=== PATIENT | male | born 1945 | race Caucasian/White ===

== ENCOUNTER → 2017-07-22 13:49 | Outpatient (CLI) | payer MEDICARE, SELFPAY ==
[2017-07-22 14:20] LABS: Add Manual Diff / Slide Review NO; Basophils Percent Auto 1.4 % (0-2); Hematocrit 36.6 % (41-53); Hemoglobin 12.4 g/dL (13.5-17.5); Lymphocytes Percent Auto 23.1 % (25-40); Mean Corpuscular HGB Conc 33.9 % (30-36); Mean Corpuscular Hemoglobin 32.8 PG (26-34); Mean Corpuscular Volume 96.5 fL (80-100); Monocytes Percent Auto 8.7 % (3-14); Neutrophils Absolute Auto 3800 /uL (3000-5900); Neutrophils Percent Auto 64.8 % (50-75); Platelet Count 246 X10^3/uL (150-400); Red Cell Distribution Width 13.6 % (11.6-14.8); White Blood Cell Count 5.9 X10^3/uL (4.5-11.0)
[2017-07-22 14:29] LABS: Alanine Aminotransferase 21 IU/L (21-72); Albumin 4.4 g/dL (3.5-5.0); Albumin Globulin Ratio 1.6 (1.0-2.8); Alkaline Phosphatase 56 U/L (38-126); Aspartate Aminotransferase 26 IU/L (17-59); BUN Creatinine Ratio 11.9 (6-22); Bilirubin Total 0.4 mg/dL (0.2-1.3); Calcium 9.6 mg/dL (8.4-10.2); Estimated Glomerular Filt Rate 42.6 mL/min (>60); Globulin 2.8 g/dL (1.7-4.1); Glucose 112 mg/dL (80-110); HEMOLYSIS < 15 (0-50); Potassium 4.4 mmol/L (3.4-5.1); Sodium 139 mmol/L (137-145); Total Protein 7.2 g/dL (6.3-8.2)
== END ==
PROVIDERS: Family Provider Physician Assistant; PCP Physician Assistant; Visit Provider Nurse Practitioner Gerontology
DX: C61 Malignant neoplasm of prostate (principal)
CPT/HCPCS: 36415; 80053; 84153; 85025

== ENCOUNTER → 2017-08-09 09:38 | Outpatient (CLI) | payer MEDICARE, SELFPAY ==
[2017-07-25 13:33] VITALS: TEMP 36.8
--- NOTE | 2017-08-09 09:39 | DI.NM.S_ITS ---
PROCEDURE: [place] BONE SCAN WHOLE BODY RADIOPHARMACEUTICAL: 20.3 mCi Tc-99m MDP IV. 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 Anterior and posterior views were acquired from vertex to feet. Additional left and right oblique views of the ribs were obtained. COMPARISON: [facility], [place], ABDOMEN/PELVIS WITHOUT CONTRAS, 10/25/2016, 10:27. [place], [place], BONE SCAN WHOLE BODY, 10/25/2016, 13:19. [place], BONE SCAN WHOLE BODY, 05/08/2016, 13:30. FINDINGS: Multiple foci of increased radiotracer uptake are noted in the right maxilla, the sternum, the ribs bilaterally, the lower thoracic spine the upper lumbar spine, the sacral spine, the bony pelvis and the proximal femurs bilaterally which are unchanged compared to 10/25/2016. No new areas of increased radiotracer uptake identified. No areas of osseous photopenia identified. Osteoarthritic uptake noted in the shoulders bilaterally and the right wrist. No abnormal soft tissue uptake. Activity in the kidneys is normal and symmetric. Dilated bilateral genitourinary collecting systems is stable and is compatible with chronic hydroureteronephrosis IMPRESSION: Extensive osseous metastatic disease not significantly changed compared to 10/25/16. No new osseous metastatic lesions are identified. Dictated by: Meenakshi Lacy MD, PhD on 08/09/2017 at 12:46 Approved by: Meenakshi Lacy MD, PhD on 08/09/2017 at 12:52
== END ==
PROVIDERS: Family Provider Physician Assistant; PCP Physician Assistant; Visit Provider Internal Medicine Hematology & Oncology
DX: C79.51 Secondary malignant neoplasm of bone (principal)
CPT/HCPCS: 78306; A9503

== ENCOUNTER → 2017-11-12 14:26 | Outpatient (CLI) | payer MEDICARE, SELFPAY ==
[2017-11-12 14:39] LABS: Add Manual Diff / Slide Review NO; Eosinophils Percent Auto 2.1 % (2-4); Hematocrit 34.6 % (41-53); Hemoglobin 12.1 g/dL (13.5-17.5); Lymphocytes Percent Auto 25.1 % (25-40); Mean Corpuscular HGB Conc 34.9 % (30-36); Mean Corpuscular Hemoglobin 33.4 PG (26-34); Mean Corpuscular Volume 95.7 fL (80-100); Monocytes Percent Auto 7.8 % (3-14); Neutrophils Absolute Auto 4100 /uL (3000-5900); Platelet Count 223 X10^3/uL (150-400); Red Blood Cell Count 3.62 X10^6/uL (4.5-5.9); Red Cell Distribution Width 13.6 % (11.6-14.8); White Blood Cell Count 6.4 X10^3/uL (4.5-11.0)
[2017-11-12 14:55] LABS: Alanine Aminotransferase 26 IU/L (21-72); Albumin 4.4 g/dL (3.5-5.0); Albumin Globulin Ratio 1.8 (1.0-2.8); Alkaline Phosphatase 57 U/L (38-126); Aspartate Aminotransferase 30 IU/L (17-59); BUN Creatinine Ratio 11.6 (6-22); Bilirubin Total 0.4 mg/dL (0.2-1.3); Blood Urea Nitrogen 22 mg/dL (9-20); Calcium 9.9 mg/dL (8.4-10.2); Carbon Dioxide 29 mmol/L (22-32); Chloride 104 mmol/L (98-107); Estimated Glomerular Filt Rate 34.9 mL/min (>60); Globulin 2.5 g/dL (1.7-4.1); Glucose 104 mg/dL (80-110); HEMOLYSIS < 15 (0-50); Potassium 4.5 mmol/L (3.4-5.1); Sodium 142 mmol/L (137-145); Total Protein 6.9 g/dL (6.3-8.2)
== END ==
PROVIDERS: Family Provider Physician Assistant; PCP Physician Assistant; Visit Provider Internal Medicine Hematology & Oncology
DX: C61 Malignant neoplasm of prostate (principal); C41.9 Malignant neoplasm of bone and articular cartilage, unspecified
CPT/HCPCS: 36415; 80053; 84153; 85025

== ENCOUNTER → 2018-02-04 13:50 | Outpatient (CLI) | payer MEDICARE, SELFPAY ==
[2018-02-04 14:08] LABS: Add Manual Diff / Slide Review NO; Eosinophils Percent Auto 7.3 % (2-4); Hemoglobin 12.8 g/dL (13.5-17.5); Lymphocytes Percent Auto 36.4 % (25-40); Mean Corpuscular HGB Conc 32.9 % (30-36); Mean Corpuscular Hemoglobin 32.2 PG (26-34); Mean Corpuscular Volume 97.9 fL (80-100); Monocytes Percent Auto 9.3 % (3-14); Neutrophils Absolute Auto 3400 /uL (3000-5900); Platelet Count 239 X10^3/uL (150-400); Red Blood Cell Count 3.98 X10^6/uL (4.5-5.9); Red Cell Distribution Width 13.7 % (11.6-14.8); White Blood Cell Count 7.4 X10^3/uL (4.5-11.0)
[2018-02-04 14:29] LABS: Alanine Aminotransferase 26 IU/L (21-72); Albumin 4.5 g/dL (3.5-5.0); Albumin Globulin Ratio 1.9 (1.0-2.8); Alkaline Phosphatase 58 U/L (38-126); Aspartate Aminotransferase 21 IU/L (17-59); Bilirubin Total 0.3 mg/dL (0.2-1.3); Blood Urea Nitrogen 18 mg/dL (9-20); Calcium 9.3 mg/dL (8.4-10.2); Carbon Dioxide 23 mmol/L (22-32); Chloride 105 mmol/L (98-107); Estimated Glomerular Filt Rate 45.9 mL/min (>60); Globulin 2.4 g/dL (1.7-4.1); Glucose 95 mg/dL (80-110); HEMOLYSIS < 15 (0-50); Iron 62 ug/dL (49-181); Potassium 4.6 mmol/L (3.4-5.1); Sodium 141 mmol/L (137-145); Total Protein 6.9 g/dL (6.3-8.2)
[2018-02-04 14:39] LABS: Percent Iron Saturation 17 % (20-50); Total Iron Binding Capacity 360 ug/dL (261-462); Transferrin 287 mg/dL (206-381)
== END ==
PROVIDERS: Family Provider Physician Assistant; PCP Physician Assistant; Visit Provider Nurse Practitioner Gerontology
DX: C61 Malignant neoplasm of prostate (principal); C79.51 Secondary malignant neoplasm of bone; E83.42 Hypomagnesemia
CPT/HCPCS: 36415; 80053; 83540; 83550; 83735; 84153; 85025

== ENCOUNTER → 2018-05-01 11:24 | Outpatient (CLI) | payer MEDICARE, SELFPAY ==
[2018-05-01 11:41] LABS: Add Manual Diff / Slide Review NO; Basophils Absolute Auto 100 /uL (0-100); Basophils Percent Auto 1.1 % (0-2); Eosinophils Absolute Auto 400 /uL (0-450); Eosinophils Percent Auto 5.5 % (2-4); Hematocrit 39.7 % (41-53); Hemoglobin 13.4 g/dL (13.5-17.5); Lymphocytes Absolute Auto 2700 /uL (1100-4500); Lymphocytes Percent Auto 35.3 % (25-40); Mean Corpuscular HGB Conc 33.9 % (30-36); Mean Corpuscular Hemoglobin 32.6 PG (26-34); Mean Corpuscular Volume 96.1 fL (80-100); Monocytes Absolute Auto 800 /uL (0-900); Monocytes Percent Auto 10.8 % (3-14); Neutrophils Absolute Auto 3700 /uL (1500-7000); Neutrophils Percent Auto 47.3 % (50-75); Platelet Count 264 X10^3/uL (150-400); Red Blood Cell Count 4.13 X10^6/uL (4.5-5.9); Red Cell Distribution Width 13.8 % (11.6-14.8); White Blood Cell Count 7.7 X10^3/uL (4.5-11.0)
[2018-05-01 11:55] LABS: Alanine Aminotransferase 22 IU/L (21-72); Albumin 4.7 g/dL (3.5-5.0); Albumin Globulin Ratio 1.6 (1.0-2.8); Alkaline Phosphatase 58 U/L (38-126); Aspartate Aminotransferase 24 IU/L (17-59); BUN Creatinine Ratio 12.1 (6-22); Bilirubin Total 0.3 mg/dL (0.2-1.3); Blood Urea Nitrogen 17 mg/dL (9-20); Calcium 9.5 mg/dL (8.4-10.2); Carbon Dioxide 23 mmol/L (22-32); Chloride 100 mmol/L (98-107); Estimated Glomerular Filt Rate 49.5 mL/min (>60); Glucose 109 mg/dL (80-110); HEMOLYSIS < 15 (0-50); Potassium 4.3 mmol/L (3.4-5.1); Sodium 135 mmol/L (137-145); Total Protein 7.7 g/dL (6.3-8.2)
--- NOTE | 2018-05-01 13:58 | PC.NURSE ---
labs stable, provider visit on 05/06
== END ==
PROVIDERS: Family Provider Physician Assistant; PCP Physician Assistant
DX: C61 Malignant neoplasm of prostate (principal); C79.51 Secondary malignant neoplasm of bone
CPT/HCPCS: 36415; 80053; 84153; 85025

== ENCOUNTER → 2018-06-02 09:38 | Outpatient (CLI) | payer MEDICARE, SELFPAY ==
--- NOTE | 2018-06-02 09:41 | DI.NM.S_ITS ---
PROCEDURE: [place] BONE SCAN WHOLE BODY RADIOPHARMACEUTICAL: 20.2 mCi Tc-99m MDP IV. INDICATIONS: Prostate Cancer TECHNIQUE: Delayed whole-body scintigrams were obtained approximately 3-4 hours after intravenous injection of radiotracer. Anterior and posterior views were acquired from vertex to feet. COMPARISON: [facility], [place], HAND 3V RIGHT, 09/20/2016, 12:39. [facility], [place], WRIST MINIMUM 3 VIEWS RIGHT, 09/20/2016, 12:39. [place], [place], BONE SCAN WHOLE BODY, 10/25/2016, 13:19. [place], BONE SCAN WHOLE BODY, 09/07/2015, 14:26. [place], BONE SCAN WHOLE BODY, 05/08/2016, 13:30. [facility], CT, CT CHEST ABD PEL W CON, 06/02/2018, 11:41. [place] BONE SCAN WHOLE BODY, 08/09/2017, 13:13. FINDINGS: There is increased uptake in the left maxillary area, unchanged. Foci of increased activity are present in the inferior sternum near the xiphoid, multiple ribs bilaterally, thoracic and lumbar spine, right iliac bone adjacent to sacroiliac joint, left proximal femur, correlating with extensive sclerotic bone lesions seen on CT, consistent with metastases. Compared with the last bone scan on 08/09/2017, there is no significant change. Increased uptake in right wrist is unchanged, correlating with severe degenerative/arthritic changes seen on the comparison radiograph. Increased uptake in the left foot is also likely degenerative. Bladder is mildly distended. IMPRESSION: 1. Stable metastatic disease on bone scan. Extensive sclerotic metastases are seen on correlating CT. Dictated by: Nell Vann M.D. on 06/02/2018 at 14:42 Approved by: Nell Vann M.D. on 06/02/2018 at 17:57
--- NOTE | 2018-06-02 10:13 | DI.CT.S_ITS ---
PROCEDURE: CT CHEST ABD PEL W CON INDICATIONS: acutely elevated PSA TECHNIQUE: After the administration of oral and intravenous contrast, 5 mm thick sections acquired from the lung apices to the symphysis. 5 mm coronal and sagittal reformats were performed, with additional 7 mm coronal MIP reformats through the lungs. For radiation dose reduction, the following was used: automated exposure control, adjustment of mA and/or kV according to patient size. COMPARISON: [place], [place] BONE SCAN WHOLE BODY, 06/02/2018, 12:52. [place] BONE SCAN WHOLE BODY, 08/09/2017, 13:13. [facility], [place], ABDOMEN/PELVIS WITHOUT CONTRAS, 10/25/2016, 10:27. [facility], CT, CHEST/ABD/PEL WITHOUT CONTRAST, 05/08/2016, 9:52. FINDINGS: Image quality: Excellent. CHEST: Lungs and pleura: Predominantly left-sided stable appearing pulmonary nodules are again noted, grossly unchanged since 04/18/16. No acute consolidation. Scattered subsegmental atelectasis and/or scarring. No pleural effusions or pneumothorax. Central and peripheral airways appear patent and normal in caliber. Mediastinum: Heart size is enlarged. Coronary artery calcifications are present. . No pericardial effusion. No mediastinal or hilar adenopathy by size criteria. Thoracic aorta and central pulmonary arteries are normal in size. Esophagus is normal in caliber. No hiatal hernia. Chest wall: No axillary or supraclavicular adenopathy by size criteria. Thyroid gland negative. Marked atrophy of the left subscapularis muscle as before ABDOMEN: Solid organs: Liver is normal in size and enhancement. Gallbladder grossly unremarkable. Biliary system is non dilated. Pancreas enhances normally. Spleen is normal in size and enhancement. No adrenal nodules. Left renal cortical atrophy. Unchanged simple appearing renal cysts. Bilateral hydroureter, grossly unchanged. Peritoneum and bowel: Bowel loops demonstrate normal wall thickness and caliber. No free fluid or air. Nodes and vessels: No retroperitoneal or mesenteric adenopathy by size criteria. Aorta and inferior vena cava are normal in size. Miscellaneous: No ventral hernias. PELVIS: Genitourinary: The bladder is distended and otherwise unremarkable. Miscellaneous: No inguinal hernias or adenopathy. Bones: Densely sclerotic widespread skeletal metastases as before. She wedging of the T12 and L1 vertebral bodies, unchanged. IMPRESSION: Overall, stable examination without evidence of active metastatic disease. Stable appearance of bilateral hydroureter. Previously seen circumferential bladder wall thickening appears improved on the current study. Stable pulmonary nodules presumably treated disease or sequela of prior granulomatous process. Cardiomegaly and coronary artery disease. Left renal atrophy as before. Widespread skeletal osseous metastases, as before. Dictated by: Jeanmarie Corrigan M.D. on 06/02/2018 at 15:03 Approved by: Jeanmarie Corrigan M.D. on 06/02/2018 at 15:14
[2018-06-02 10:57] LABS: Add Manual Diff / Slide Review NO; Basophils Absolute Auto 100 /uL (0-100); Basophils Percent Auto 1.4 % (0-2); Eosinophils Absolute Auto 300 /uL (0-450); Eosinophils Percent Auto 4.5 % (2-4); Hematocrit 38.7 % (41-53); Hemoglobin 12.9 g/dL (13.5-17.5); Lymphocytes Absolute Auto 1900 /uL (1100-4500); Lymphocytes Percent Auto 28.4 % (25-40); Mean Corpuscular HGB Conc 33.4 % (30-36); Mean Corpuscular Hemoglobin 32.7 PG (26-34); Mean Corpuscular Volume 97.9 fL (80-100); Monocytes Absolute Auto 700 /uL (0-900); Monocytes Percent Auto 10.7 % (3-14); Neutrophils Absolute Auto 3700 /uL (1500-7000); Platelet Count 244 X10^3/uL (150-400); Red Blood Cell Count 3.95 X10^6/uL (4.5-5.9); Red Cell Distribution Width 13.6 % (11.6-14.8); White Blood Cell Count 6.7 X10^3/uL (4.5-11.0)
[2018-06-02 11:11] LABS: Alanine Aminotransferase 24 IU/L (21-72); Albumin 4.7 g/dL (3.5-5.0); Albumin Globulin Ratio 1.7 (1.0-2.8); Alkaline Phosphatase 64 U/L (38-126); Aspartate Aminotransferase 22 IU/L (17-59); Bilirubin Total 0.3 mg/dL (0.2-1.3); Blood Urea Nitrogen 18 mg/dL (9-20); Calcium 9.3 mg/dL (8.4-10.2); Carbon Dioxide 24 mmol/L (22-32); Chloride 102 mmol/L (98-107); Estimated Glomerular Filt Rate 45.7 mL/min (>60); Globulin 2.7 g/dL (1.7-4.1); Glucose 113 mg/dL (80-110); HEMOLYSIS < 15 (0-50); Sodium 138 mmol/L (137-145); Total Protein 7.4 g/dL (6.3-8.2)
[2018-06-02 11:38] LABS: Prostate Specific Antigen 6.69 ng/mL (0.10-4.00)
[2018-06-02 11:41] LABS: Testosterone 11.3 ng/dL (71.8-623)
== END ==
PROVIDERS: Family Provider Physician Assistant; PCP Physician Assistant; Visit Provider Nurse Practitioner Gerontology
DX: C61 Malignant neoplasm of prostate (principal); C79.51 Secondary malignant neoplasm of bone; N13.4 Hydroureter; R91.8 Other nonspecific abnormal finding of lung field; I51.7 Cardiomegaly; I25.10 Atherosclerotic heart disease of native coronary artery without angina pectoris; N26.1 Atrophy of kidney (terminal)
CPT/HCPCS: 36415; 71260; 74177; 78306; 80053; 84153; 84403; 85025; A9503; Q9967

== ENCOUNTER → 2018-10-20 11:59 | Outpatient (CLI) | payer MEDICARE, SELFPAY ==
[2018-10-20 12:23] LABS: Add Manual Diff / Slide Review NO; Basophils Absolute Auto 100 /uL (0-100); Basophils Percent Auto 0.7 % (0-2); Eosinophils Absolute Auto 200 /uL (0-450); Eosinophils Percent Auto 2.9 % (2-4); Hematocrit 38.9 % (41-53); Hemoglobin 13.1 g/dL (13.5-17.5); Lymphocytes Absolute Auto 2100 /uL (1100-4500); Mean Corpuscular HGB Conc 33.6 % (30-36); Mean Corpuscular Hemoglobin 33.1 PG (26-34); Mean Corpuscular Volume 98.6 fL (80-100); Monocytes Absolute Auto 500 /uL (0-900); Monocytes Percent Auto 6.3 % (3-14); Neutrophils Absolute Auto 4600 /uL (1500-7000); Neutrophils Percent Auto 62.1 % (50-75); Platelet Count 221 X10^3/uL (150-400); Red Blood Cell Count 3.94 X10^6/uL (4.5-5.9); Red Cell Distribution Width 13.4 % (11.6-14.8); White Blood Cell Count 7.4 X10^3/uL (4.5-11.0)
[2018-10-20 12:35] LABS: Alanine Aminotransferase 20 IU/L (21-72); Albumin 4.1 g/dL (3.5-5.0); Albumin Globulin Ratio 1.6 (1.0-2.8); Alkaline Phosphatase 64 U/L (38-126); Aspartate Aminotransferase 23 IU/L (17-59); BUN Creatinine Ratio 18.8 (6-22); Bilirubin Total 0.4 mg/dL (0.2-1.3); Blood Urea Nitrogen 30 mg/dL (9-20); Calcium 9.5 mg/dL (8.4-10.2); Carbon Dioxide 29 mmol/L (22-32); Chloride 103 mmol/L (98-107); Estimated Glomerular Filt Rate 42.5 mL/min (>60); Globulin 2.5 g/dL (1.7-4.1); Glucose 112 mg/dL (80-110); HEMOLYSIS < 15 (0-50); Potassium 4.1 mmol/L (3.4-5.1); Sodium 141 mmol/L (137-145); Total Protein 6.6 g/dL (6.3-8.2)
[2018-10-20 13:05] LABS: Prostate Specific Antigen 7.04 ng/mL (0.10-4.00)
== END ==
PROVIDERS: Family Provider Physician Assistant; PCP Physician Assistant
DX: C61 Malignant neoplasm of prostate (principal); C79.51 Secondary malignant neoplasm of bone
CPT/HCPCS: 36415; 80053; 84153; 85025

== ENCOUNTER → 2018-12-15 09:46 | Outpatient (CLI) | payer MEDICARE, SELFPAY ==
[2018-12-15 11:12] LABS: Add Manual Diff / Slide Review NO; Basophils Absolute Auto 100 /uL (0-100); Basophils Percent Auto 0.7 % (0-2); Eosinophils Absolute Auto 200 /uL (0-450); Eosinophils Percent Auto 2.3 % (2-4); Hematocrit 37.6 % (41-53); Lymphocytes Absolute Auto 2400 /uL (1100-4500); Lymphocytes Percent Auto 28.2 % (25-40); Mean Corpuscular HGB Conc 34.7 % (30-36); Mean Corpuscular Hemoglobin 34.1 PG (26-34); Mean Corpuscular Volume 98.3 fL (80-100); Monocytes Absolute Auto 800 /uL (0-900); Monocytes Percent Auto 9.2 % (3-14); Neutrophils Absolute Auto 5000 /uL (1500-7000); Neutrophils Percent Auto 59.6 % (50-75); Platelet Count 214 X10^3/uL (150-400); Red Blood Cell Count 3.82 X10^6/uL (4.5-5.9); Red Cell Distribution Width 13.9 % (11.6-14.8); White Blood Cell Count 8.5 X10^3/uL (4.5-11.0)
[2018-12-15 11:24] LABS: Alanine Aminotransferase 25 IU/L (21-72); Albumin 4.4 g/dL (3.5-5.0); Albumin Globulin Ratio 1.8 (1.0-2.8); Alkaline Phosphatase 66 U/L (38-126); Aspartate Aminotransferase 33 IU/L (17-59); BUN Creatinine Ratio 12.8 (6-22); Bilirubin Total 0.6 mg/dL (0.2-1.3); Blood Urea Nitrogen 23 mg/dL (9-20); Calcium 11.6 mg/dL (8.4-10.2); Carbon Dioxide 28 mmol/L (22-32); Chloride 99 mmol/L (98-107); Estimated Glomerular Filt Rate 37.1 mL/min (>60); Globulin 2.4 g/dL (1.7-4.1); Glucose 107 mg/dL (80-110); HEMOLYSIS < 15 (0-50); Potassium 4.1 mmol/L (3.4-5.1); Sodium 140 mmol/L (137-145); Total Protein 6.8 g/dL (6.3-8.2)
[2018-12-15 11:54] LABS: Prostate Specific Antigen 9.83 ng/mL (0.10-4.00)
== END ==
PROVIDERS: PCP Physician Assistant
DX: C61 Malignant neoplasm of prostate (principal); C79.51 Secondary malignant neoplasm of bone
CPT/HCPCS: 36415; 80053; 84153; 85025

== ENCOUNTER → 2019-02-09 13:58 | Outpatient (CLI) | payer MEDICARE, SELFPAY ==
[2019-02-09 14:37] LABS: Add Manual Diff / Slide Review NO; Basophils Absolute Auto 100 /uL (0-100); Basophils Percent Auto 0.7 % (0-2); Eosinophils Absolute Auto 300 /uL (0-450); Eosinophils Percent Auto 2.7 % (2-4); Hematocrit 39.7 % (41-53); Hemoglobin 13.7 g/dL (13.5-17.5); Lymphocytes Absolute Auto 2700 /uL (1100-4500); Lymphocytes Percent Auto 28.9 % (25-40); Mean Corpuscular HGB Conc 34.5 % (30-36); Mean Corpuscular Hemoglobin 34.2 PG (26-34); Mean Corpuscular Volume 99.3 fL (80-100); Monocytes Absolute Auto 800 /uL (0-900); Monocytes Percent Auto 8.4 % (3-14); Neutrophils Absolute Auto 5600 /uL (1500-7000); Neutrophils Percent Auto 59.3 % (50-75); Platelet Count 203 X10^3/uL (150-400); Red Cell Distribution Width 13.4 % (11.6-14.8); White Blood Cell Count 9.5 X10^3/uL (4.5-11.0)
[2019-02-09 14:48] LABS: Alanine Aminotransferase 15 IU/L (<50); Albumin 4.5 g/dL (3.5-5.0); Albumin Globulin Ratio 1.7 (1.0-2.8); Alkaline Phosphatase 62 U/L (38-126); Aspartate Aminotransferase 23 IU/L (17-59); BUN Creatinine Ratio 15.9 (6-22); Bilirubin Total 0.5 mg/dL (0.2-1.3); Blood Urea Nitrogen 27 mg/dL (9-20); Calcium 9.8 mg/dL (8.4-10.2); Carbon Dioxide 30 mmol/L (22-32); Chloride 102 mmol/L (98-107); Estimated Glomerular Filt Rate 39.6 mL/min (>60); Globulin 2.6 g/dL (1.7-4.1); Glucose 96 mg/dL (80-110); HEMOLYSIS < 15 (0-50); Potassium 3.9 mmol/L (3.4-5.1); Sodium 140 mmol/L (137-145); Total Protein 7.1 g/dL (6.3-8.2)
== END ==
DX: C61 Malignant neoplasm of prostate (principal); C79.51 Secondary malignant neoplasm of bone
CPT/HCPCS: 36415; 80053; 84153; 85025

== ENCOUNTER → 2019-03-06 09:28 | Outpatient (CLI) | payer MEDICARE, SELFPAY ==
--- NOTE | 2019-03-06 09:30 | DI.CT.S_ITS ---
PROCEDURE: CT CHEST ABD PEL WO CON INDICATIONS: prostate cancer surveillance, increased pain TECHNIQUE: After the administration of oral contrast, 5 mm thick sections acquired from the lung apices to the symphysis pubis. 5 mm thick coronal and sagittal reformats acquired, with additional 7 mm coronal MIP reformats through the lungs. For radiation dose reduction, the following was used: automated exposure control, adjustment of mA and/or kV according to patient size. COMPARISON: [facility], CT, CHEST/ABD/PEL WITHOUT CONTRAST, 05/08/2016, 9:52. [facility], CT, CT CHEST ABD PEL W CON, 06/02/2018, 11:41. FINDINGS: Image quality: Excellent. CHEST: Lungs and pleura: Scattered subsegmental atelectasis and/or scarring. No focal consolidation. Multiple subpleural left upper lobe pulmonary nodules are unchanged since 2017. Diffuse central airway thickening. No pleural effusions or pneumothorax. Central and peripheral airways are patent are normal in caliber. Mediastinum: Heart size is borderline enlarged. Numerous coronary artery calcifications No pericardial effusion. No mediastinal adenopathy by CT size criteria. Thoracic aorta and central pulmonary arteries are normal in size. Esophagus is normal in caliber. Small hiatal hernia. Chest wall: No axillary or supraclavicular adenopathy by size criteria. Thyroid gland negative. Marked atrophy of the left subscapularis muscle. ABDOMEN: Solid organs: Liver is normal in size. Gallbladder unremarkable. Pancreas is normal in contours. Spleen is normal in size. No adrenal nodules. Severe left renal atrophy and cortical scarring. Presumed right renal cyst image 69/2. No definite urolithiasis. Bilateral ureterectasis, which is grossly unchanged to improved since the prior study. Previous pelviectasis has improved. Peritoneum and bowel: There is diffuse moderate stool. No evidence of bowel obstruction. The rectum is partially collapsed and therefore grossly unremarkable. No free fluid or air. Nodes and vessels: No retroperitoneal or mesenteric adenopathy by size criteria. Aorta and inferior vena cava are normal in size. Miscellaneous: No ventral hernias. PELVIS: Genitourinary: The bladder is grossly unremarkable Miscellaneous: No inguinal hernias or adenopathy. Bones: Redemonstration of innumerable osseous sclerotic metastases which appear grossly unchanged involving the ribs, spine, bony pelvis, sternum, bilateral scapula and bilateral femurs. No compression fracture is seen. Multilevel degenerative endplate sclerosis and spurring. Diffuse facet arthropathy. IMPRESSION: Innumerable widespread osseous metastases as before without definite interval change. Elsewhere, no pathologically enlarged lymphadenopathy or interval change to suggest progressive metastases Coronary artery disease Small hiatal hernia Additional chronic and incidental findings as above. Dictated by: Jeanmarie Corrigan M.D. on 03/06/2019 at 10:40 Approved by: Jeanmarie Corrigan M.D. on 03/06/2019 at 10:52
--- NOTE | 2019-03-06 09:30 | DI.NM.S_ITS ---
PROCEDURE: [place] BONE SCAN WHOLE BODY RADIOPHARMACEUTICAL: 21.3 mCi Tc-99m MDP IV. INDICATIONS: prostate cancer, increase pain TECHNIQUE: Delayed whole-body scintigrams were obtained approximately 3-4 hours after intravenous injection of radiotracer. Anterior and posterior views were acquired from vertex to feet. COMPARISON: [place], [place] BONE SCAN WHOLE BODY, 06/02/2018, 12:52. [place], [place] BONE SCAN WHOLE BODY, 08/09/2017, 13:13. FINDINGS: There is a focus of prominent midline dorsal isotope deposition centered on T5 vertebral body/posterior elements area of the upper thoracic spine. No other abnormality is seen. IMPRESSION: Suspect osseous metastatic disease and reported elevating PSA as cause of the T5 region posterior midline focus of new spine isotope deposition. MR scanning through that area may be warranted at this time. Dictated by: Maykel Urias M.D. on 03/06/2019 at 14:12 Approved by: Maykel Urias M.D. on 03/06/2019 at 14:14
== END ==
DX: C61 Malignant neoplasm of prostate (principal); C79.51 Secondary malignant neoplasm of bone; I25.10 Atherosclerotic heart disease of native coronary artery without angina pectoris; R52 Pain, unspecified; R91.8 Other nonspecific abnormal finding of lung field; K44.9 Diaphragmatic hernia without obstruction or gangrene
CPT/HCPCS: 36415; 71250; 74176; 78306; 80053; 84153; 85025; A9503

== ENCOUNTER → 2019-03-06 10:30 | Outpatient (CLI) | payer MEDICARE, SELFPAY ==
[2019-03-06 10:52] LABS: Add Manual Diff / Slide Review NO; Basophils Absolute Auto 100 /uL (0-100); Basophils Percent Auto 0.9 % (0-2); Eosinophils Absolute Auto 200 /uL (0-450); Eosinophils Percent Auto 2.7 % (2-4); Hematocrit 41.3 % (41-53); Hemoglobin 14.1 g/dL (13.5-17.5); Lymphocytes Absolute Auto 2200 /uL (1100-4500); Lymphocytes Percent Auto 26.3 % (25-40); Mean Corpuscular HGB Conc 34.1 % (30-36); Mean Corpuscular Hemoglobin 34.2 PG (26-34); Mean Corpuscular Volume 100.1 fL (80-100); Monocytes Absolute Auto 800 /uL (0-900); Monocytes Percent Auto 9.3 % (3-14); Neutrophils Absolute Auto 5100 /uL (1500-7000); Neutrophils Percent Auto 60.8 % (50-75); Platelet Count 224 X10^3/uL (150-400); Red Blood Cell Count 4.13 X10^6/uL (4.5-5.9); Red Cell Distribution Width 13.5 % (11.6-14.8); White Blood Cell Count 8.4 X10^3/uL (4.5-11.0)
[2019-03-06 11:05] LABS: Alanine Aminotransferase 18 IU/L (<50); Albumin 4.7 g/dL (3.5-5.0); Albumin Globulin Ratio 1.8 (1.0-2.8); Alkaline Phosphatase 68 U/L (38-126); Aspartate Aminotransferase 26 IU/L (17-59); BUN Creatinine Ratio 15.9 (6-22); Bilirubin Total 0.6 mg/dL (0.2-1.3); Blood Urea Nitrogen 27 mg/dL (9-20); Carbon Dioxide 31 mmol/L (22-32); Chloride 97 mmol/L (98-107); Estimated Glomerular Filt Rate 39.6 mL/min (>60); Globulin 2.6 g/dL (1.7-4.1); Glucose 109 mg/dL (80-110); HEMOLYSIS < 15 (0-50); Sodium 136 mmol/L (137-145); Total Protein 7.3 g/dL (6.3-8.2)
[2019-03-06 11:07] LABS: Potassium 5.7 mmol/L (3.4-5.1)
[2019-03-06 11:35] LABS: Prostate Specific Antigen 9.62 ng/mL (0.10-4.00)
== END ==
DX: C61 Malignant neoplasm of prostate (principal); C79.51 Secondary malignant neoplasm of bone
CPT/HCPCS: 36415; 80053; 84153; 85025

== ENCOUNTER 2019-06-20 15:18 | Inpatient (IN) | payer MEDICARE, SELFPAY ==
[2019-06-20] VITALS (13 sets, daily range): BP systolic 146–165; BP diastolic 62–96; PULSE 61–82; RESP 16–22; TEMP 36.5–37; O2SAT 79–96; BMI 22.9
--- NOTE | 2019-06-20 15:36 | ED.GENADULT ---
HPI - General Adult General Chief complaint: Weakness Stated complaint: Weak Time Seen by Provider: 06/20/19 15:18 Source: patient and EMS Mode of arrival: EMS Limitations: no limitations History of Present Illness HPI narrative: Patient is a 74-year-old male brought in by EMS this morning for diarrhea and weakness and nausea. Somewhat difficult to obtain in the exact HPI from the patient but does appear that last evening he was at his normal state health in this morning he felt well. He states he did not take his medications this morning. Unsure if he had diarrhea this morning however patient states that he did take a nap this afternoon and when he woke up at multiple episodes of diarrhea. States he could make it to the bathroom. He did fall while he was in the bathroom although he did not hit his head and sustained no injury. Was very weak could not stand up. EMS was called. When they arrived he was in his bedroom in covered in feces. Upon further questioning of his she states that he has had decreased oral intake over the past week and maybe his not been acting his normal for the past week. Patient does smoke. No history of COPD. No fevers no cough no sore throat. Is having some nausea upon arrival. Related Data Home Medications Medication Instructions Recorded Confirmed aspirin 325 mg PO PRN PRN #0 10/04/16 05/13/19 diphenhydramine HCl [Benadryl 25 mg DAILY 07/02/18 05/13/19 Allergy] morphine PO 06/20/19 Previous Rx's Medication Instructions Recorded enzalutamide [Xtandi] 160 mg PO DAILY #120 cap 04/08/19 hydrocodone-acetaminophen 1 tab PO DAILY #30 tab 06/10/19 morphine [MS Contin] 30 mg PO Q12H #60 tab 06/10/19 ondansetron HCl [Zofran] 8 mg PO Q6HR PRN #60 tab 06/15/19 Allergies Allergy/AdvReac Type Severity Reaction Status Date / Time No Known Drug Allergies Allergy Verified 06/20/19 15:18 Review of Systems Constitutional Constitutional: Reports chills, Reports fatigue, Reports fever(s), Denies headache(s) and Reports lethargy ENT Ears, Nose, Mouth, and Throat: Denies vertigo, Denies dizziness and Denies headache(s) Cardiovascular Cardiovascular: Denies chest pain and Denies dyspnea Respiratory Respiratory: Denies cough and Denies dyspnea Gastrointestinal Gastrointestinal: Denies abdominal pain, Denies dyspepsia, Reports diarrhea, Reports nausea and Denies vomiting Musculoskeletal Musculoskeletal: Denies myalgias and Denies arthralgias Integumentary/Breasts Skin/Breast: Denies rash Neurologic Neurologic: Denies confusion, Denies vertigo, Denies dizziness and Denies headache(s) Psychiatric Psychiatric: Denies confusion Endocrine Endocrine: Reports fatigue Hematologic/Lymphatic Hematologic/Lymphatic: Denies easy bleeding and Denies easy bruising Patient History Medical History Failure to thrive (Inactive) Hyponatremia (Inactive) Metastatic bone cancer (Inactive) Metastatic malignant neoplasm to prostate (Inactive) Social History Smoking Status: Current every day smoker Smoking Status: Current every day smoker tobacco type: cigarettes Substance Use Type: marijuana Exam Initial Vital Signs Initial Vital Signs: Vital Signs Temperature 97.7 F 06/20/19 15:19 Pulse Rate 82 06/20/19 15:19 Respiratory Rate 20 06/20/19 15:19 Blood Pressure 146/96 H 06/20/19 15:19 Pulse Oximetry 95 06/20/19 15:19 Const General: cooperative and comfortable Limitations: mental status not altered HENMT Head: normal to inspection and normocephalic Resp Effort & Inspection: normal respiratory effort, not labored, no retractions, not tachypneic and no use of accessory muscles Auscultation: clear to auscultation bilaterally Cardio Rate: regular rate Rhythm: regular rhythm GI Inspection: non-distended Palpation: soft Skin Lesions: no lesions Rashes: no rashes Neuro General: alert, awake and oriented x3 Speech: speech normal Sensory Exam: no sensory deficits noted Extrem General: normal to inspection and capillary refill normal Psych Appearance: grossly normal and well kempt Scores GCS Wendy coma scale eye opening: Spontaneous Wendy coma scale verbal response: Orientated Wendy coma scale motor response: Obey commands Wendy coma scale total score: 15 Course Orders Ordered: ED Orders 06/20/19 15:19 C-Reactive Protein Quant Stat Complete Blood Count AUTO DIFF Stat Comprehensive Metabolic Panel Stat D Dimer Stat Ferritin Stat Lactate Dehydrogenase Stat Lipase Stat Procalcitonin Stat Troponin I Stat 06/20/19 15:38 XR chest 1V Stat 06/20/19 15:47 EKG-12 Lead Stat 06/20/19 15:51 CT chest wo con Stat 06/20/19 17:08 Blood Culture Stat Urinalysis and Microscopic Stat 06/20/19 17:09 Arterial Blood Gas Stat Sodium Chloride (Normal Saline 0.9%) 1,000 mls @ 125 mls/hr IV CONT DESIRE Ceftriaxone Sodium/Dextrose (Rocephin) 1 gm in 50 mls @ 100 mls/hr IV NOW ONE Stop: 06/20/19 17:37 Discontinued Medications Azithromycin (Zithromax) 500 mg PO NOW ONE Stop: 06/20/19 17:08 Sodium Chloride (Normal Saline 0.9%) 1,000 mls @ 1,000 mls/hr IV BOLUS ONE Stop: 06/20/19 16:24 Last Admin: 06/20/19 15:50 Dose: 1,000 mls/hr Documented by: [email or web address] Ondansetron HCl (Zofran) 4 mg IV NOW ONE Stop: 06/20/19 15:26 Last Admin: 06/20/19 15:51 Dose: 4 mg Documented by: [email or web address] Vital Signs Vital signs: Vital Signs - 8 hr 06/20/19 15:19 06/20/19 15:29 06/20/19 15:30 Temperature 97.7 F Pulse Rate 82 81 79 Respiratory Rate 20 20 22 Blood Pressure 146/96 H Blood Pressure [Left Arm] 156/68 H Pulse Oximetry 95 92 79 L 06/20/19 15:45 06/20/19 16:30 06/20/19 16:53 Temperature Pulse Rate 71 61 65 Respiratory Rate 20 16 16 Blood Pressure Blood Pressure [Left Arm] 159/64 H 165/70 H Pulse Oximetry 94 94 94 Medical Decision Making Medical Records Medical records reviewed: Yes I reviewed the patient's medical records. Lab Data Lab results reviewed: Yes I reviewed the patient's lab results. Result diagrams: 06/20/19 15:19 06/20/19 15:19 Labs: Lab Results 06/20/19 06/20/19 06/20/19 Range/Units 15:19 15:19 15:19 WBC 12.3 H (4.5-11.0) X10^3/uL RBC 3.81 L (4.5-5.9) X10^6/uL Hgb 12.7 L (13.5-17.5) g/dL Hct 38.1 L (41-53) % MCV 100.1 H (80-100) fL MCH 33.4 (26-34) PG MCHC 33.3 (30-36) % RDW 12.6 (11.6-14.8) % Plt Count 287 (150-400) X10^3/uL Neut % (Auto) 55.0 (50-75) % Lymph % (Auto) 31.0 (25-40) % Worth % (Auto) 8.6 (3-14) % Eos % (Auto) 4.7 H (2-4) % Baso % (Auto) 0.7 (0-2) % Neut # (Auto) 6800 (6965-0203) /uL Lymph # (Auto) 3800 (8201-2150) /uL Worth # (Auto) 1100 H (0-900) /uL Eos # (Auto) 600 H (0-450) /uL Baso # (Auto) 100 (0-100) /uL D-Dimer 369 H (<230) ng/mL Sodium 133 L (137-145) mmol/L Potassium 3.6 (3.4-5.1) mmol/L Chloride 91 L (98-107) mmol/L Carbon Dioxide 26 (22-32) mmol/L BUN 28 H (9-20) mg/dL Creatinine 2.78 H (0.66-1.25) mg/dL Estimated GFR 22.4 L (>60) mL/min BUN/Creatinine Ratio 10.1 (6-22) Glucose 189 H (80-110) mg/dL Calcium 12.6 H (8.4-10.2) mg/dL Ferritin (18-464) ng/mL Total Bilirubin 0.6 (0.2-1.3) mg/dL AST 41 (17-59) IU/L ALT 16 (<50) IU/L Alkaline Phosphatase 80 (38-126) U/L Lactate Dehydrogenase (313-618) U/L Troponin I (0.01-0.034) ng/mL C-Reactive Protein (<1.0) mg/dL Total Protein 7.6 (6.3-8.2) g/dL Albumin 4.7 (3.5-5.0) g/dL Globulin 2.9 (1.7-4.1) g/dL Albumin/Globulin Ratio 1.6 (1.0-2.8) Lipase 98 (23-300) U/L Procalcitonin (<0.5) ng/mL 06/20/19 06/20/19 06/20/19 Range/Units 15:19 15:19 15:19 WBC (4.5-11.0) X10^3/uL RBC (4.5-5.9) X10^6/uL Hgb (13.5-17.5) g/dL Hct (41-53) % MCV (80-100) fL MCH (26-34) PG MCHC (30-36) % RDW (11.6-14.8) % Plt Count (150-400) X10^3/uL Neut % (Auto) (50-75) % Lymph % (Auto) (25-40) % Worth % (Auto) (3-14) % Eos % (Auto) (2-4) % Baso % (Auto) (0-2) % Neut # (Auto) (5649-1325) /uL Lymph # (Auto) (0160-7541) /uL Worth # (Auto) (0-900) /uL Eos # (Auto) (0-450) /uL Baso # (Auto) (0-100) /uL D-Dimer (<230) ng/mL Sodium (137-145) mmol/L Potassium (3.4-5.1) mmol/L Chloride (98-107) mmol/L Carbon Dioxide (22-32) mmol/L BUN (9-20) mg/dL Creatinine (0.66-1.25) mg/dL Estimated GFR (>60) mL/min BUN/Creatinine Ratio (6-22) Glucose (80-110) mg/dL Calcium (8.4-10.2) mg/dL Ferritin 23 (18-464) ng/mL Total Bilirubin (0.2-1.3) mg/dL AST (17-59) IU/L ALT (<50) IU/L Alkaline Phosphatase (38-126) U/L Lactate Dehydrogenase 411 (313-618) U/L Troponin I 0.038 H (0.01-0.034) ng/mL C-Reactive Protein < 0.5 (<1.0) mg/dL Total Protein (6.3-8.2) g/dL Albumin (3.5-5.0) g/dL Globulin (1.7-4.1) g/dL Albumin/Globulin Ratio (1.0-2.8) Lipase (23-300) U/L Procalcitonin 4.50 H (<0.5) ng/mL Imaging Data Chest x-ray: Radiologist's Impression: [address] [address] XRay Report Signed Patient: Eliazar Hernandez TMR#: [id number] : 5Acct:[id number] Age/Sex: 74 / MDate of Service: 06/20/19 Loc: ED Accession Number: [id number] Procedure: XR chest 1V Ordering Provider: Danny Jansen D.O. PROCEDURE: XR CHEST 1V INDICATIONS: Hypoxia TECHNIQUE: One view of the chest was acquired. COMPARISON: [facility], CT, CT CHEST ABD PEL WO CON, 03/06/2019, 10:21. [facility], NM, NM BONE SCAN WHOLE BODY, 03/06/2019, 12:57. [facility], CR, CHEST 1 VIEW, 09/29/2015, 15:01. FINDINGS: Surgical changes and devices: None. Lungs and pleura: Patchy areas of increased density are identified overlying the lungs, which could potentially represent areas of airspace disease or sclerotic lesions involving the ribs. Mediastinum: Mediastinal contours appear normal. Heart size is normal. There is aortic atherosclerosis. Bones and chest wall: No suspicious bony lesions. Overlying soft tissues appear unremarkable. Sclerotic foci are evident involving the right shoulder, multiple ribs, and nearly the entire imaged spine, but not well characterized. IMPRESSION: 1. Patchy areas of increased density within the lungs may represent multifocal pneumonia. However, these areas of increased density most likely represent sclerotic rib lesions. 2. Extensive sclerotic bony metastases. Dictated by: Refugio Gibbs M.D. on 06/20/2019 at 15:38 Approved by: Refugio Gibbs M.D. on 06/20/2019 at 15:41 CT scan - chest: Radiologist's Impression: [address] [place] [address] CT Scan Report Signed Patient: Eliazar Hernandez TMR#: [id number] : 5Acct:[id number] Age/Sex: 74 / MDate of Service: 06/20/19 Loc: ED Accession Number: [id number] Procedure: CT chest wo con Ordering Provider: Danny Jansen D.O. PROCEDURE: CT CHEST WO CON INDICATIONS: eval for bilateral infiltrates concern for COVID TECHNIQUE: Noncontrast 5 mm thick sections acquired from the pulmonary apices to the posterior costophrenic angles. 1 mm lung window, 5 mm thick coronal and sagittal and 7 mm axial MIP reformats were then acquired. For radiation dose reduction, the following was used: automated exposure control, adjustment of mA and/or kV according to patient size. COMPARISON: [facility], CR, XR CHEST 1V, 06/20/2019, 16:02. [facility], CT, CT CHEST ABD PEL WO CON, 03/06/2019, 10:21. [facility], CT, CT CHEST ABD PEL W CON, 06/02/2018, 11:41. FINDINGS: Image quality: Diagnostic. Lungs and pleura: The lungs are well aerated. There is no focal consolidation, effusion, or pneumothorax. There is a small nodule identified along the left upper lobe, which measures up to 7 mm in diameter and which is unchanged since 06/02/18. No definite new nodules are appreciated. There is no lung mass. Mediastinum: Heart size is normal. No pericardial effusion. No mediastinal adenopathy by size criteria. Thoracic aorta and central pulmonary arteries are normal in size. There is coronary and aortic atherosclerosis. Esophagus is normal in caliber. No hiatal hernia. Bones and chest wall: Extensive sclerotic lesions are identified diffusely throughout all of the chest, including the vertebra, ribs, sternum, scapula and, and right proximal humerus. No axillary or supraclavicular adenopathy by size criteria. Thyroid gland is not adequately evaluated on CT, but does not appear to be enlarged. Abdomen: Visualized upper abdominal solid organs and bowel loops appear normal in the absence of contrast. The stomach is moderately distended, which may be related to recent meal. IMPRESSION: 1. No cardiopulmonary process is evident. 2. Extensive sclerotic metastases without evidence of a pathologic fracture. 3. Unchanged dominant left upper lobe pulmonary nodule. No new nodules. 4. Coronary and aortic atherosclerosis. Dictated by: Refugio Gibbs M.D. on 06/20/2019 at 15:50 Approved by: Refugio Gibbs M.D. on 06/20/2019 at 15:54 ECG Data Attestation: I personally reviewed and interpreted this ECG as follows: Prior ECG tracings: not available for review Interpretation: Sinus rhythm Ventricular rate is 75 Normal axis Normal QRS Nonspecific ST T wave changes MDM Narrative Medical decision making narrative: 74-year-old male initially here for would appear to be GI symptoms and potentially dehydration and weakness. Not on anticoagulation. Initially while patient was on the pulse ox his saturations were in the 90s but then it did drop to the high 60s. Patient was not complaining of chest pain or shortness of breath at that time however there was a good tracing on the monitor. He was placed on 4 L of nasal cannula in after a couple deep breath through his nose oxygen saturations went to the mid upper 90s. I then took him off the oxygen by nasal cannula and his saturations again dropped to the 60s. He is placed back on oxygen a which increased his oxygen to the 90s once again. At then slowly titrated his oxygen down and when he was on 2 L his oxygen saturations dropped to the 80s and responded when he was placed back on greater than 3 L. He does have a slight leukocytosis. He does have an elevation in his creatinine which is potentially secondary to the decreased oral intake and the diarrhea today. Has an elevated procalcitonin and given his leukocytosis and his chest x-ray is concern for pneumonia. CT scan of his chest was done for further evaluation of potential COVID-19 infection with a primary GI etiology. A culture was sent for this. CT scan does not support a COVID diagnosis however he will remain in contact precautions until this test is back. Patient was given fluids. Antibiotics ordered after discussion with Dr. Azar with Internal Medicine. Cultures were obtained. Will admit secondary to the hypoxia and for fluid hydration and further weakness. Discussed this with the patient who expressed understanding and agreement. Discharge Plan Departure Patient Disposition: Admitted As Inpatient Clinical Impression: Hypoxia, Prostate cancer metastatic to bone, Acute kidney injury, Weakness Pneumonia Qualifiers: Pneumonia type: due to unspecified organism Laterality: unspecified laterality Lung location: unspecified part of lung Qualified Code(s): J18.9 - Pneumonia, unspecified organism Diarrhea Qualifiers: Diarrhea type: unspecified type Qualified Code(s): R19.7 - Diarrhea, unspecified Admit Date/Time: 06/20/19 17:12 Admit Provider: Giorgi Azar
[2019-06-20 15:40] LABS: Add Manual Diff / Slide Review NO; Basophils Absolute Auto 100 /uL (0-100); Basophils Percent Auto 0.7 % (0-2); Eosinophils Absolute Auto 600 /uL (0-450); Eosinophils Percent Auto 4.7 % (2-4); Hematocrit 38.1 % (41-53); Hemoglobin 12.7 g/dL (13.5-17.5); Lymphocytes Absolute Auto 3800 /uL (1100-4500); Mean Corpuscular HGB Conc 33.3 % (30-36); Mean Corpuscular Hemoglobin 33.4 PG (26-34); Mean Corpuscular Volume 100.1 fL (80-100); Monocytes Absolute Auto 1100 /uL (0-900); Monocytes Percent Auto 8.6 % (3-14); Neutrophils Absolute Auto 6800 /uL (1500-7000); Platelet Count 287 X10^3/uL (150-400); Red Blood Cell Count 3.81 X10^6/uL (4.5-5.9); Red Cell Distribution Width 12.6 % (11.6-14.8); White Blood Cell Count 12.3 X10^3/uL (4.5-11.0)
[2019-06-20 15:43] LABS: Alanine Aminotransferase 16 IU/L (<50); Albumin 4.7 g/dL (3.5-5.0); Albumin Globulin Ratio 1.6 (1.0-2.8); Alkaline Phosphatase 80 U/L (38-126); Aspartate Aminotransferase 41 IU/L (17-59); BUN Creatinine Ratio 10.1 (6-22); Bilirubin Total 0.6 mg/dL (0.2-1.3); Blood Urea Nitrogen 28 mg/dL (9-20); Calcium 12.6 mg/dL (8.4-10.2); Carbon Dioxide 26 mmol/L (22-32); Chloride 91 mmol/L (98-107); Estimated Glomerular Filt Rate 22.4 mL/min (>60); Globulin 2.9 g/dL (1.7-4.1); Glucose 189 mg/dL (80-110); HEMOLYSIS < 15 (0-50); Lipase 98 U/L (23-300); Potassium 3.6 mmol/L (3.4-5.1); Sodium 133 mmol/L (137-145); Total Protein 7.6 g/dL (6.3-8.2)
[2019-06-20] MEDS: SODIUM CHLORIDE 0.9% 1,000 ML 1000 ML IV (15:50)
[2019-06-20] MEDS: ONDANSETRON 4 MG/2 ML INJ IV ×2 (15:51→19:57)
--- NOTE | 2019-06-20 15:51 | DI.CT.S_ITS ---
PROCEDURE: CT CHEST WO CON INDICATIONS: eval for bilateral infiltrates concern for COVID TECHNIQUE: Noncontrast 5 mm thick sections acquired from the pulmonary apices to the posterior costophrenic angles. 1 mm lung window, 5 mm thick coronal and sagittal and 7 mm axial MIP reformats were then acquired. For radiation dose reduction, the following was used: automated exposure control, adjustment of mA and/or kV according to patient size. COMPARISON: [facility], CR, XR CHEST 1V, 06/20/2019, 16:02. [facility], CT, CT CHEST ABD PEL WO CON, 03/06/2019, 10:21. [facility], CT, CT CHEST ABD PEL W CON, 06/02/2018, 11:41. FINDINGS: Image quality: Diagnostic. Lungs and pleura: The lungs are well aerated. There is no focal consolidation, effusion, or pneumothorax. There is a small nodule identified along the left upper lobe, which measures up to 7 mm in diameter and which is unchanged since 06/02/18. No definite new nodules are appreciated. There is no lung mass. Mediastinum: Heart size is normal. No pericardial effusion. No mediastinal adenopathy by size criteria. Thoracic aorta and central pulmonary arteries are normal in size. There is coronary and aortic atherosclerosis. Esophagus is normal in caliber. No hiatal hernia. Bones and chest wall: Extensive sclerotic lesions are identified diffusely throughout all of the chest, including the vertebra, ribs, sternum, scapula and, and right proximal humerus. No axillary or supraclavicular adenopathy by size criteria. Thyroid gland is not adequately evaluated on CT, but does not appear to be enlarged. Abdomen: Visualized upper abdominal solid organs and bowel loops appear normal in the absence of contrast. The stomach is moderately distended, which may be related to recent meal. IMPRESSION: 1. No cardiopulmonary process is evident. 2. Extensive sclerotic metastases without evidence of a pathologic fracture. 3. Unchanged dominant left upper lobe pulmonary nodule. No new nodules. 4. Coronary and aortic atherosclerosis. Dictated by: Refugio Gibbs M.D. on 06/20/2019 at 15:50 Approved by: Refugio Gibbs M.D. on 06/20/2019 at 15:54
[2019-06-20 15:54] LABS: Lactate Dehydrogenase 411 U/L (313-618)
[2019-06-20 15:58] LABS: D Dimer 369 ng/mL (<230)
[2019-06-20 16:06] LABS: Troponin I 0.038 ng/mL (0.01-0.034)
[2019-06-20 16:09] LABS: C-Reactive Protein Quant < 0.5 mg/dL (<1.0)
[2019-06-20 16:30] LABS: Ferritin 23 ng/mL (18-464)
[2019-06-20] MEDS: CEFTRIAXONE 1 GM/50 ML FROZ.PIGGY IV (17:59)
[2019-06-20] MEDS: AZITHROMYCIN 250 MG TABLET 500 MG PO (18:00)
[2019-06-20] MEDS: SODIUM CHLORIDE 0.9% 1,000 ML 125 ML IV (18:09)
[2019-06-20 18:11] LABS: Fractionated Inspired Oxygen 0.36; HCO3 ABG 32 mmol/L (22-26); Oxygen Saturation ABG 85 % (95-100); PO2 ABG 53 mmHg (80-100); TCO2 ABG 33 mmol/L (21-31); pH ABG 7.37 (7.35-7.45)
--- NOTE | 2019-06-20 18:32 | P.HP_ITS ---
History of Present Illness History of Present Illness Date Patient Seen: 06/20/19 Time Patient Seen: 18:00 Chief complaint: Weak Narrative: Patient is a 74-year-old male with history of metastatic prostate cancer, under care of local Oncology, presented to emergency department with complaints of ?diarrhea ?and vomiting episode and weakness. Patient states he has had poor appetite and not taking much by mouth over the past 4 days. He takes Zofran regularly for nausea. He has also been constipated and taking MiraLax daily. This morning he had a bout of large watery bowel movement. He was feeling tired and went to bed. He woke up this afternoon with stool incontinence while still in bed and apparently barely made it to the bathroom. It sounds like he had a controlled fall in the bathroom and did not hit his head. He was very weak and could not stand up. When EMS arrived he was covered in feces. In the ER, patient started to have acute desaturations in his pulse ox with O2 sat in the 70s. He was put on 4 L O2 and C with improvement in sats to the mid 90s but on 2 L his sats have been in the low 80s. His ABG on 4 L (36%) NC showed pH 7.37, pCO2 55, PO2 53, sat 85%. However, patient denies cough, shortness of breath or fever. He lives with his who has not been sick. He had chest x-ray which showed patchy areas of increased density which likely represents sclerotic rib lesions from his metastatic cancer. His chest CT did not show any infiltrates. He has been intermittently in AFib on telemetry in the ED. His WBC is 12.3 with normal neutrophil and lymphocyte percentage, slightly elevated eosinophils, hemoglobin 12.7, sodium 133, potassium 3.6, BUN 28, creatinine 2.78. His recent baseline creatinine is 1.5-1.9 range. His serum calcium is quite elevated at 12.6. Procalcitonin is elevated at 4.50. Patient History Medical History Failure to thrive (Inactive) Hyponatremia (Inactive) Metastatic bone cancer (Inactive) Metastatic malignant neoplasm to prostate (Inactive) Family & Social History Safety & Behavioral: Feels Safe in Current Yes Environment Been Physically Hurt or No Threatened By a Person Tobacco & Substance use: Smoking Status Current every day smoker Substance Use Type marijuana Meds Home Medications and Allergies Home Medications Medication Instructions Recorded Confirmed Type aspirin 325 mg PO PRN PRN #0 10/04/16 05/13/19 History diphenhydramine HCl [Benadryl 25 mg DAILY 07/02/18 05/13/19 History Allergy] enzalutamide [Xtandi] 160 mg PO DAILY #120 cap 04/08/19 Rx hydrocodone-acetaminophen 1 tab PO DAILY #30 tab 06/10/19 Rx morphine [MS Contin] 30 mg PO Q12H #60 tab 06/10/19 Rx ondansetron HCl [Zofran] 8 mg PO Q6HR PRN #60 tab 06/15/19 Rx morphine PO 06/20/19 History Allergies Allergy/AdvReac Type Severity Reaction Status Date / Time No Known Drug Allergies Allergy Verified 06/20/19 15:18 Review of Systems Review of Systems ROS: Yes All systems reviewed with the patient and are negative except as otherwise documented Exam Vital Signs (past 8 hours): - 06/20/19 15:19 06/20/19 15:29 06/20/19 15:30 Temperature 97.7 F Pulse Rate 82 81 79 Respiratory Rate 20 20 22 Blood Pressure 146/96 H Blood Pressure [Left Arm] 156/68 H Pulse Oximetry 95 92 79 L 06/20/19 15:45 06/20/19 16:30 06/20/19 16:53 Temperature Pulse Rate 71 61 65 Respiratory Rate 20 16 16 Blood Pressure Blood Pressure [Left Arm] 159/64 H 165/70 H Pulse Oximetry 94 94 94 06/20/19 18:13 06/20/19 18:29 Temperature Pulse Rate 63 63 Respiratory Rate 20 20 Blood Pressure 150/62 H Blood Pressure [Left Arm] 150/62 H Pulse Oximetry 93 Oxygen Delivery Method Nasal Cannula Oxygen Flow Rate 4 Narrative Exam Narrative: General: Elderly male who is alert but appears in a weakened state HEENT: Pupils equal Neck: No lymphadenopathy Lungs: Clear to auscultation Heart: Regular rhythm, no murmur Abdomen: Nondistended, soft and nontender Extremities: Warm, no edema, no rash Neurological: Alert, oriented to person and place, nonfocal Objective Labs Result Diagrams: 06/20/19 15:19 06/20/19 15:19 Labs: Laboratory Results - last 24 hr 06/20/19 06/20/19 06/20/19 15:19 15:19 15:19 WBC 12.3 H RBC 3.81 L Hgb 12.7 L Hct 38.1 L MCV 100.1 H MCH 33.4 MCHC 33.3 RDW 12.6 Plt Count 287 Neut % (Auto) 55.0 Lymph % (Auto) 31.0 [place] % (Auto) 8.6 Eos % (Auto) 4.7 H Baso % (Auto) 0.7 Neut # (Auto) 6800 Lymph # (Auto) 3800 [place] # (Auto) 1100 H Eos # (Auto) 600 H Baso # (Auto) 100 D-Dimer 369 H ABG pH ABG pCO2 ABG pO2 ABG HCO3 ABG Total CO2 ABG O2 Saturation ABG Base Excess FiO2 Sodium 133 L Potassium 3.6 Chloride 91 L Carbon Dioxide 26 BUN 28 H Creatinine 2.78 H Estimated GFR 22.4 L BUN/Creatinine Ratio 10.1 Glucose 189 H Calcium 12.6 H Ferritin Total Bilirubin 0.6 AST 41 ALT 16 Alkaline Phosphatase 80 Lactate Dehydrogenase Troponin I C-Reactive Protein Total Protein 7.6 Albumin 4.7 Globulin 2.9 Albumin/Globulin Ratio 1.6 Lipase 98 Procalcitonin 06/20/19 06/20/19 06/20/19 15:19 15:19 15:19 WBC RBC Hgb Hct MCV MCH MCHC RDW Plt Count Neut % (Auto) Lymph % (Auto) [place] % (Auto) Eos % (Auto) Baso % (Auto) Neut # (Auto) Lymph # (Auto) [place] # (Auto) Eos # (Auto) Baso # (Auto) D-Dimer ABG pH ABG pCO2 ABG pO2 ABG HCO3 ABG Total CO2 ABG O2 Saturation ABG Base Excess FiO2 Sodium Potassium Chloride Carbon Dioxide BUN Creatinine Estimated GFR BUN/Creatinine Ratio Glucose Calcium Ferritin 23 Total Bilirubin AST ALT Alkaline Phosphatase Lactate Dehydrogenase 411 Troponin I 0.038 H C-Reactive Protein < 0.5 Total Protein Albumin Globulin Albumin/Globulin Ratio Lipase Procalcitonin 4.50 H 06/20/19 17:59 WBC RBC Hgb Hct MCV MCH MCHC RDW Plt Count Neut % (Auto) Lymph % (Auto) [place] % (Auto) Eos % (Auto) Baso % (Auto) Neut # (Auto) Lymph # (Auto) [place] # (Auto) Eos # (Auto) Baso # (Auto) D-Dimer ABG pH 7.37 ABG pCO2 55.0 H ABG pO2 53 L ABG HCO3 32 H ABG Total CO2 33 H ABG O2 Saturation 85 L ABG Base Excess 6.0 H FiO2 0.36 Sodium Potassium Chloride Carbon Dioxide BUN Creatinine Estimated GFR BUN/Creatinine Ratio Glucose Calcium Ferritin Total Bilirubin AST ALT Alkaline Phosphatase Lactate Dehydrogenase Troponin I C-Reactive Protein Total Protein Albumin Globulin Albumin/Globulin Ratio Lipase Procalcitonin Assessment & Plan Assessment & Plan narrative: Patient is a 74-year-old male with metastatic prostate cancer now presenting with a couple episodes of watery stool and incontinence and episode of vomiting but noted to be severely hypoxic in spite of absence of respiratory complaints. 1. Acute hypoxic respiratory failure, present on admission, active -as noted O2 sat in the 70s on room air, ABG pH 7.369, pCO2 55, PO2 53; PaO2/FIO2 of 147 -CT without evidence of lung infiltrate -patient without overt respiratory symptoms of cough or dyspnea, however his presentation with severe unexplained hypoxia is very concerning for COVID-19 -patient is at high risk of clinical deterioration in respiratory status where he would need to be intubated and placed on mechanical ventilator, however he has clearly stated wishes that he does not want to be placed on life support or have CPR -Support oxygenation with nasal cannula, since patient does not wish to be intubated we can exceed 6 L high-flow nasal cannula if necessary -mildly elevated WBC and elevated procalcitonin of 4.50 also raises possibility of bacterial infection including developing pneumonia not seen on CT -obtain blood cultures and urine culture -rule out COVID-19 -Rocephin 1 g IV q.day and Zithromax 500 mg IV q.day to treat for possible developing bacterial pneumonia -consider repeat chest x-ray or noncontrast chest CT in a.m. -D-dimer is minimally elevated and patient without tachycardia which probably makes large PE unlikely to explain his presentation -consider TTE once patient COVID testing result is back 2. Acute kidney injury, present on admission, active -CKD stage 3 with creatinine in 1.5-1.9 range -admit BUN 28, creatinine 2.78, EGFR 22.4 likely explained by patient's lack of p.o. intake in the past several days -received 1 L NS in ED -continue NS 42 cc/hour x1 additional liter -repeat renal function in AM 3. Acute hypercalcemia, present on admission, active -probably due to volume depletion and may be also partly from bone metastases secondary to his prostate CA -addressed with IV hydration -recheck labs in a.m. 4. Paroxysmal AFib with controlled rate, present on admission, active -in ED on tele noted to be intermittently in AFib without change in BP or O2 sat, likely precipitated by hypoxia -monitor on telemetry 5. Metastatic prostate cancer -patient establish with local oncology -continue Xtandi -continue patient's morphine MS Contin 30 mg b.i.d. for pain due to bone Mets DVT prophylaxis: Lovenox renal dose Code status: DNR per bedside discussion with patient at time of admission
[2019-06-20] MEDS: MORPHINE ER 30 MG TABLET PO (19:52)
--- NOTE | 2019-06-20 22:10 | PC.ADMIT ---
[address] Admission Note: The patient,Eliazar Hernandez,74 y/o, was given written information regarding hospital policies, unit procedures and contact persons. Pt arrived from ED via stretcher at approx 1940. A/O. RA sats 89-90%. 2.5 L NC sats increased to 95%. Slider board used to trans to bed. Denies pain. Oriented to room and call system. Special droplet isolation initiated for Covid-19 PUI. Telemetry connected. Urinal placed at bedside. Notified provider of pt request for Nicotine patch. Patient's smoking status: Current every day smoker. Vital Signs - 8 hr 06/20/19 15:19 06/20/19 15:29 06/20/19 15:30 Temperature 97.7 F Pulse Rate 82 81 79 Respiratory Rate 20 20 22 Blood Pressure 146/96 H Blood Pressure [Left Arm] 156/68 H Pulse Oximetry 95 92 79 L 06/20/19 15:45 06/20/19 16:30 06/20/19 16:53 Temperature Pulse Rate 71 61 65 Respiratory Rate 20 16 16 Blood Pressure Blood Pressure [Left Arm] 159/64 H 165/70 H Pulse Oximetry 94 94 94 06/20/19 18:13 06/20/19 18:29 06/20/19 19:44 Temperature 98.6 F Pulse Rate 63 63 68 Respiratory Rate 20 20 16 Blood Pressure 150/62 H 162/63 H Blood Pressure [Left Arm] 150/62 H Pulse Oximetry 93 96 06/20/19 21:15 Temperature Pulse Rate Respiratory Rate Blood Pressure Blood Pressure [Left Arm] Pulse Oximetry 95
[2019-06-20] MEDS: NICOTINE 14 PATCH 14 MG TOP (22:41)
[2019-06-21] VITALS (11 sets, daily range): BP systolic 125–151; BP diastolic 65–97; PULSE 55–77; RESP 15–19; TEMP 36.3–36.8; O2SAT 92–100
--- NOTE | 2019-06-21 02:14 | PC.NURSE ---
Addendum entered by Lisa Vargas R.N. 06/21/19 06:57: Incontinent of large amount loose BM. Continues to intermittently set off oximeter alarm and noted to be down into low 80's but rebounds back to low 90's within 1 minute. States he is having left leg pain this morning and rates severity as 7/10; medicated with scheduled Morphine ER. Original Note: At start of shift patient on 3L but sat noted to be as low as 80% so increased to 4L/min. Continued to note intermittent desats into low 80's with rebound back to 90's within 1 minute; RT here to assess and placed patient on oxygen at 6L/min and sat while asleep noted to be 90%. Denies SOB and breath sounds are CTA. Is alert and oriented. YSLETA DEL SUR. HR irregular; telemetry reading at 0000 was SR w/PAC's. Denies nausea. BT present and abdomen is soft. Denies dysuria, frequency or urgency and is using urinal in bed. Able to turn himself but reportedly needing assistance/device when out of bed; gait not assessed at this time as not out of bed. Has limited ROM in left shoulder and complains of 6/10 pain (when asked) but declines pain medication/intervention. Abrasions noted on bilateral LE. Calf SCD's applied as per MD order. Is on special droplet/contact precautions due to aerosolization from oxygen being at 6L/min. Also on chemo precautions. Fall risk score is high and bed alarm is activated.
[2019-06-21 06:19] LABS: BUN Creatinine Ratio 9.9 (6-22); Blood Urea Nitrogen 23 mg/dL (9-20); Calcium 10.8 mg/dL (8.4-10.2); Carbon Dioxide 34 mmol/L (22-32); Chloride 98 mmol/L (98-107); Estimated Glomerular Filt Rate 27.6 mL/min (>60); Glucose 93 mg/dL (80-110); HEMOLYSIS < 15 (0-50); Potassium 3.9 mmol/L (3.4-5.1); Sodium 133 mmol/L (137-145)
[2019-06-21 06:26] LABS: Add Manual Diff / Slide Review NO; Basophils Absolute Auto 100 /uL (0-100); Eosinophils Absolute Auto 400 /uL (0-450); Eosinophils Percent Auto 4.9 % (2-4); Hematocrit 34.3 % (41-53); Hemoglobin 11.5 g/dL (13.5-17.5); Lymphocytes Absolute Auto 1500 /uL (1100-4500); Mean Corpuscular HGB Conc 33.7 % (30-36); Mean Corpuscular Hemoglobin 33.8 PG (26-34); Mean Corpuscular Volume 100.5 fL (80-100); Monocytes Absolute Auto 900 /uL (0-900); Monocytes Percent Auto 12.5 % (3-14); Neutrophils Absolute Auto 4700 /uL (1500-7000); Neutrophils Percent Auto 61.6 % (50-75); Platelet Count 193 X10^3/uL (150-400); Red Blood Cell Count 3.41 X10^6/uL (4.5-5.9); Red Cell Distribution Width 12.8 % (11.6-14.8); White Blood Cell Count 7.6 X10^3/uL (4.5-11.0)
[2019-06-21 06:45] LABS: Procalcitonin 2.57 ng/mL (<0.5)
[2019-06-21] MEDS: MORPHINE ER 30 MG TABLET PO ×2 (06:50→18:52)
--- NOTE | 2019-06-21 07:39 | DI.CT.S_ITS ---
PROCEDURE: CT CHEST WO CON INDICATIONS: resp failure TECHNIQUE: Noncontrast 5 mm thick sections acquired from the pulmonary apices to the posterior costophrenic angles. 1 mm lung window, 5 mm thick coronal and sagittal and 7 mm axial MIP reformats were then acquired. For radiation dose reduction, the following was used: automated exposure control, adjustment of mA and/or kV according to patient size. COMPARISON: [facility], CR, XR CHEST 1V, 06/20/2019, 16:02. [facility], CT, CT CHEST WO CON, 06/20/2019, 16:01. [facility], CT, CT CHEST ABD PEL WO CON, 03/06/2019, 10:21. [facility], CT, CHEST/ABD/PEL WITHOUT CONTRAST, 05/08/2016, 9:52. FINDINGS: Image quality: Diagnostic. Lungs and pleura: There has been interval development of mild consolidation within the bilateral posterior costophrenic angles. No effusion or definite pneumothorax is appreciated. There may be emphysematous changes of the lungs. No lung masses identified. The dominant left upper lobe pulmonary nodule is unchanged. There are no nodules. Mediastinum: Heart size is normal. No pericardial effusion. No mediastinal adenopathy by size criteria. Thoracic aorta and central pulmonary arteries are normal in size. Coronary and aortic atherosclerosis is present. Esophagus is normal in caliber. No hiatal hernia. Bones and chest wall: No suspicious bony lesions. No vertebral body compression fractures. No axillary or supraclavicular adenopathy by size criteria. Thyroid gland is not enlarged for adequately characterized. Abdomen: Visualized upper abdominal solid organs and bowel loops appear normal in the absence of contrast. IMPRESSION: 1. Developing mild posterior costophrenic angle consolidation most likely represents atelectasis. However, please correlate clinically to exclude pneumonia. 2. Probable pulmonary emphysema. Clinical correlation is recommended. Dictated by: Refugio Gibbs M.D. on 06/21/2019 at 9:40 Approved by: Refugio Gibbs M.D. on 06/21/2019 at 9:44
--- NOTE | 2019-06-21 11:39 | PC.NURSE ---
Addendum entered by Nate Machado R.N. 06/21/19 14:20: Radiology in for hip and abdominal x-rays. will continue to wean O2 per discussion with Dr. Azar. Original Note: Pt alert and oriented asking appropriate questions. Pt to CT scan per orders. Conting awaiting Covid result. Dr. Azar in to speak with Pt. RN spoke with . to call back @ 13:30 Pt maintaining sats @94-95 on 4 ltrs. Continues on Droplet/Airborne isolation.
--- NOTE | 2019-06-21 11:47 | DI.US.S_ITS ---
PROCEDURE: US PERIPH VENOUS LOW EXTREM BI INDICATIONS: EVALUATE FOR DVT TECHNIQUE: Real-time imaging, as well as color and pulse Doppler interrogation, were performed of the deep veins of both legs from the inguinal ligament to the popliteal fossa. COMPARISON: None. FINDINGS: Right: The common femoral, femoral and popliteal veins are normally compressible, and free of intraluminal thrombus. Color and pulse Doppler demonstrate normal phasic intravascular flow. There is normal augmentation response to distal compression maneuver. Left: The common femoral, femoral and popliteal veins are normally compressible, and free of intraluminal thrombus. Color and pulse Doppler demonstrate normal phasic intravascular flow. There is normal augmentation response to distal compression maneuver. IMPRESSION: No evidence of deep vein thrombosis of the bilateral lower extremities. Dictated by: Refugio Gibbs M.D. on 06/21/2019 at 12:57 Approved by: Refugio Gibbs M.D. on 06/21/2019 at 12:57
--- NOTE | 2019-06-21 12:03 | CM.DANOTE ---
Discharge Planning/Care Management DCP: assessment: Case received, EMR reviewed. Discussed case in Team Rounds. COVID-19 rule out protocol is in place: Dr. Azar confirmed pt wishes DNAR and no ventilator support intervention. Chemo Precautions. Pt is a 74 year old male who admitted last night to care of hospitalist team. Payer: Medicare and [employer]. Admission status: INPT as of 06/19. Pt is established with oncology clinic and carries dx of metastatic prostate cancer. Spoke by phone with pt's Jenifer. Introduced self and role. Jenifer states that in spite of his ongoing cancer treatments he, up until a week ago, was his usual very active and independent self. He still is out doing maintenance jobs for others, painting, lawn work etc. RE Advanced Directives: Jenifer states that neither she nor her have these in place but she is very aware and supportive of pt's decisions for DNAR and No Ventilator support. Jenifer does say she is worried that it pt is sent home too early she will not be able to care for him. She has health conditions which would make this difficult. Pt does have a sister, Meghna Garza, who recently retired for after many years in the HouseKeeping dept who lives nearby and who Jenifer reports has been very supportive. P: Assured her that the DCP team would be following as POC unfolds to assist with d/c issues and options and these become clearer. DCplanner desk contact number is provided. CM Discharge Assessment Start: 08/04 12:00 Freq: Status: Active Protocol: Document 06/21/19 12:01 ITV (Rec: 06/21/19 12:02 ITV [id number]) Discharge Planning Assessment Advance Directives? No History Provided By Medical Record Prior Living Arrangements House Household Members spouse Is patient alert and oriented? Yes Review Status In Process
--- NOTE | 2019-06-21 12:21 | PM.PN.1 ---
Subjective Subjective Date Patient Seen: 06/21/19 Interval history: Patient is a 74-year-old male with history of metastatic prostate cancer, under care of local Oncology, presented with acute diarrhea and vomiting and noted to be hypoxic with O2 sat in the 70s on room air. His noncontrast chest CT did not show any acute abnormality. Overnight he has been on 6 L high-flow nasal cannula. He states he is feeling better overall and currently O2 sat 100%. He still has not developed shortness of breath, cough or fever and he denies pleuritic chest pain. He does complain of pain in his left leg which he had not mentioned at time of H&P. Exam Vital Signs (past 8 hours): - 06/21/19 05:45 06/21/19 07:46 06/21/19 08:38 Temperature 97.9 F 97.3 F L Pulse Rate 55 L 56 L Respiratory Rate 18 19 Blood Pressure 149/73 H 148/78 H Pulse Oximetry 97 98 100 Oxygen Delivery Method High Flow Nasal Cannula Oxygen Flow Rate 6 Narrative Exam Narrative: General: Alert and pleasant male who appears comfortable Lungs: Clear to auscultation Heart: Regular rhythm with occasional ectopy Abdomen: Soft and nontender Extremities: No edema, no palpable cord Neurological: Sensorium intact nonfocal Objective Labs Result Diagrams: 06/21/19 05:44 06/21/19 05:44 Labs: Laboratory Results - last 24 hr 06/20/19 06/20/19 06/20/19 15:19 15:19 15:19 WBC 12.3 H RBC 3.81 L Hgb 12.7 L Hct 38.1 L MCV 100.1 H MCH 33.4 MCHC 33.3 RDW 12.6 Plt Count 287 Neut % (Auto) 55.0 Lymph % (Auto) 31.0 [place] % (Auto) 8.6 Eos % (Auto) 4.7 H Baso % (Auto) 0.7 Neut # (Auto) 6800 Lymph # (Auto) 3800 [place] # (Auto) 1100 H Eos # (Auto) 600 H Baso # (Auto) 100 D-Dimer 369 H ABG pH ABG pCO2 ABG pO2 ABG HCO3 ABG Total CO2 ABG O2 Saturation ABG Base Excess FiO2 Sodium 133 L Potassium 3.6 Chloride 91 L Carbon Dioxide 26 BUN 28 H Creatinine 2.78 H Estimated GFR 22.4 L BUN/Creatinine Ratio 10.1 Glucose 189 H Calcium 12.6 H Ferritin Total Bilirubin 0.6 AST 41 ALT 16 Alkaline Phosphatase 80 Lactate Dehydrogenase Troponin I C-Reactive Protein Total Protein 7.6 Albumin 4.7 Globulin 2.9 Albumin/Globulin Ratio 1.6 Lipase 98 Procalcitonin 06/20/19 06/20/19 06/20/19 15:19 15:19 15:19 WBC RBC Hgb Hct MCV MCH MCHC RDW Plt Count Neut % (Auto) Lymph % (Auto) [place] % (Auto) Eos % (Auto) Baso % (Auto) Neut # (Auto) Lymph # (Auto) [place] # (Auto) Eos # (Auto) Baso # (Auto) D-Dimer ABG pH ABG pCO2 ABG pO2 ABG HCO3 ABG Total CO2 ABG O2 Saturation ABG Base Excess FiO2 Sodium Potassium Chloride Carbon Dioxide BUN Creatinine Estimated GFR BUN/Creatinine Ratio Glucose Calcium Ferritin 23 Total Bilirubin AST ALT Alkaline Phosphatase Lactate Dehydrogenase 411 Troponin I 0.038 H C-Reactive Protein < 0.5 Total Protein Albumin Globulin Albumin/Globulin Ratio Lipase Procalcitonin 4.50 H 06/20/19 06/21/19 06/21/19 17:59 05:44 05:44 WBC 7.6 RBC 3.41 L Hgb 11.5 L Hct 34.3 L MCV 100.5 H MCH 33.8 MCHC 33.7 RDW 12.8 Plt Count 193 Neut % (Auto) 61.6 Lymph % (Auto) 20.0 L [place] % (Auto) 12.5 Eos % (Auto) 4.9 H Baso % (Auto) 1.0 Neut # (Auto) 4700 Lymph # (Auto) 1500 [place] # (Auto) 900 Eos # (Auto) 400 Baso # (Auto) 100 D-Dimer ABG pH 7.37 ABG pCO2 55.0 H ABG pO2 53 L ABG HCO3 32 H ABG Total CO2 33 H ABG O2 Saturation 85 L ABG Base Excess 6.0 H FiO2 0.36 Sodium Potassium Chloride Carbon Dioxide BUN Creatinine Estimated GFR BUN/Creatinine Ratio Glucose Calcium Ferritin Total Bilirubin AST ALT Alkaline Phosphatase Lactate Dehydrogenase Troponin I C-Reactive Protein Total Protein Albumin Globulin Albumin/Globulin Ratio Lipase Procalcitonin 2.57 H 06/21/19 05:44 WBC RBC Hgb Hct MCV MCH MCHC RDW Plt Count Neut % (Auto) Lymph % (Auto) [place] % (Auto) Eos % (Auto) Baso % (Auto) Neut # (Auto) Lymph # (Auto) [place] # (Auto) Eos # (Auto) Baso # (Auto) D-Dimer ABG pH ABG pCO2 ABG pO2 ABG HCO3 ABG Total CO2 ABG O2 Saturation ABG Base Excess FiO2 Sodium 133 L Potassium 3.9 Chloride 98 Carbon Dioxide 34 H BUN 23 H Creatinine 2.32 H Estimated GFR 27.6 L BUN/Creatinine Ratio 9.9 Glucose 93 Calcium 10.8 H Ferritin Total Bilirubin AST ALT Alkaline Phosphatase Lactate Dehydrogenase Troponin I C-Reactive Protein Total Protein Albumin Globulin Albumin/Globulin Ratio Lipase Procalcitonin Assessment & Plan Assessment & Plan narrative: Patient is a 74-year-old male with history of metastatic prostate cancer, under care of local Oncology, presented with acute diarrhea and vomiting and noted to be hypoxic with O2 sat in the 70s on room air. His noncontrast chest CT did not show any acute abnormality. 1. Acute hypoxic respiratory failure, present on admission, active -as noted O2 sat in the 70s on room air, ABG pH 7.369, pCO2 55, PO2 53; PaO2/FIO2 of 147 -initial noncontrast CT without evidence of lung infiltrate, -repeat noncontrast CT 06/20 indicates developing mild posterior costophrenic angle consolidation most likely atelectasis, emphysema noted -patient has been afebrile without overt respiratory symptoms of cough or dyspnea -initial mildly elevated WBC possibly stress reaction, now normal -elevated procalcitonin of 4.50, repeat procalcitonin 2.57 on 06/20, rule out bacterial infection -blood cultures negative to date, urine ordered but not sent -rule out COVID-19 -Rocephin 1 g IV q.day and Zithromax 500 mg IV q.day to treat for possible developing bacterial pneumonia -D-dimer is minimally elevated and patient without tachycardia or pleuritic chest pain which makes segmental PE unlikely -unable to order PE CT study due to renal failure -bilateral venous duplex ultrasound, rule out DVT, noting patient with complaint of left leg pain, if patient has DVT then fair to assume he has PE as well -consider TTE once patient COVID testing result is back 2. Acute kidney injury, present on admission, active -CKD stage 3 with creatinine in 1.5-1.9 range -admit BUN 28, creatinine 2.78, EGFR 22.4 likely explained by patient's lack of p.o. intake in the past several days -last BUN 23, creatinine 2.3 to, EGFR 27.6 -received 2 L NS then IV saline lock -repeat renal function in AM 3. Acute hypercalcemia, present on admission, active -ue to volume depletion and may be also partly from bone metastases secondary to his prostate CA -improved with IV hydration, initial calcium 12.6, repeat calcium 10.8 4. Paroxysmal AFib with controlled rate, present on admission, active -in ED on tele noted to be intermittently in AFib without change in BP or O2 sat, likely precipitated by hypoxia -monitor on telemetry 5. Metastatic prostate cancer -patient establish with local oncology -continue Xtandi patient's own if available -continue patient's morphine MS Contin 30 mg b.i.d. for bone pain due to metastases 6. Cigarette nicotine dependency -nicotine patch 21 mg q.d. DVT prophylaxis: Lovenox renal dose Code status: DNR per bedside discussion with patient at time of admission, patient affirms DNR/DNI status on following day Quality VTE Deep Vein Thrombosis/Pulmonary Embolism Present on Admission: No
[2019-06-21] MEDS: ENOXAPARIN 30 MG/0.3 ML SYRINGE SUBCUT (12:31)
[2019-06-21] MEDS: NICOTINE 21 MG PATCH TOP (12:39)
--- NOTE | 2019-06-21 13:36 | DI.RAD.S_ITS ---
PROCEDURE: XR HIP W PEL IF DONE LT 2V INDICATIONS: r/o pathological fx, c/o lt leg pain, hx bone mets TECHNIQUE: AP pelvis with lateral view(s) of the left hip(s). COMPARISON: None. FINDINGS: Bones: No displaced fractures or dislocations of the left hip are present. There are moderate degenerative changes of both hips. Severe degenerative changes of the lower lumbar spine are present. Extensive sclerotic metastases are identified throughout the imaged lower lumbar spine, pelvic bones, and bilateral proximal femurs. No pathologic fractures are evident. Soft tissues: The visualized bowel gas pattern is normal. No suspicious soft tissue calcifications. IMPRESSION: Extensive bony metastases of the pelvis. No displaced fractures or pathologic fractures. Dictated by: Refugio Gibbs M.D. on 06/21/2019 at 13:43 Approved by: Refugio Gibbs M.D. on 06/21/2019 at 13:44
[2019-06-21] MEDS: CEFTRIAXONE 1 GM/50 ML FROZ.PIGGY IV (18:12)
[2019-06-21] MEDS: AZITHROMYCIN 500 MG in DEXTROSE 5% IN WATER 250 ML IV (18:52)
[2019-06-21] MEDS: ONDANSETRON 4 MG/2 ML INJ IV (18:52)
[2019-06-21] MEDS: SODIUM CHLORIDE 0.9% 250 ML 21 ML IV (19:00)
[2019-06-22] VITALS (11 sets, daily range): BP systolic 117–157; BP diastolic 53–85; PULSE 53–80; RESP 16–18; TEMP 36.2–36.9; O2SAT 90–97
[2019-06-22 05:53] LABS: BUN Creatinine Ratio 11.3 (6-22); Blood Urea Nitrogen 20 mg/dL (9-20); Calcium 9.9 mg/dL (8.4-10.2); Carbon Dioxide 31 mmol/L (22-32); Chloride 97 mmol/L (98-107); Estimated Glomerular Filt Rate 37.7 mL/min (>60); Glucose 101 mg/dL (80-110); HEMOLYSIS < 15 (0-50); Potassium 3.5 mmol/L (3.4-5.1); Sodium 134 mmol/L (137-145)
[2019-06-22 06:19] LABS: Procalcitonin 2.03 ng/mL (<0.5)
[2019-06-22] MEDS: MORPHINE ER 30 MG TABLET PO ×2 (06:30→18:41)
[2019-06-22] MEDS: ONDANSETRON 4 MG/2 ML INJ IV ×2 (06:39→18:45)
[2019-06-22 08:41] LABS: COVID19 Sendout Not Detected (Not Detected)
[2019-06-22] MEDS: ENOXAPARIN 30 MG/0.3 ML SYRINGE SUBCUT (09:13)
[2019-06-22] MEDS: NICOTINE 21 MG PATCH TOP (09:14)
[2019-06-22] MEDS: SODIUM CHLORIDE 0.9% FLUSH 10 ML IV ×2 (09:14)
--- NOTE | 2019-06-22 11:26 | PT.IIE ---
Current Diagnoses Pneumonia, unspecified organism (06/20/19) Acute respiratory failure with hypoxia (06/20/19) Weakness (06/20/19) Medical History (Last Reviewed 06/20/19 @ 17:33 by Danny Jansen DO) Failure to thrive (Inactive) Hyponatremia (Inactive) Metastatic bone cancer (Inactive) Metastatic malignant neoplasm to prostate (Inactive) Physical Therapy Inpatient Evaluation/Re-Eval M1 PT/OT-IP Prior Functional Status Start: 06/22/19 12:27 Freq: NEEDED Status: Active Protocol: Document 06/22/19 13:01 [facility] (Rec: 06/22/19 13:09 [facility] [id number]) Medical Review Prior Functional Status Medical History Reviewed Yes Diet/Fluid Consistency Regular Communication WNL Mobility and Gait idnep without AD Activities of Daily Living and IADL's typically does all ADLs and does lawn mowing etc. Reports he has slowed down the past 3 weeks d/t hip hurting Social History Household Members spouse Living Arrangements House Number of Floors (Floors) One Floor Number of Stairs To Enter/Railing? 1STE Home Environment Standard Height Toilet,Walk in Shower Home Equipment Front Wheel Walker,Shower Seat with Backrest,Grab Bars Near Toilet,Grab Bars In Shower Employment Status Retired M2 PT-IP Current Condition Start: 06/22/19 12:27 Freq: NEEDED Status: Active Protocol: Document 06/22/19 13:01 [facility] (Rec: 06/22/19 13:09 [facility] [id number]) Physical Therapy Current Condition Current Condition Evaluation Date 06/22/19 Treatment Diagnosis weakness Weight Bearing Status Weight Bearing Status Full Weight Bearing M3 PT-IP Subjective Start: 06/22/19 12:27 Freq: NEEDED Status: Active Protocol: Document 06/22/19 13:01 [facility] (Rec: 06/22/19 13:09 [facility] [id number]) Subjective Physical Therapy Visit Type Type Initial Evaluation Visit Start Time 11:00 Visit Stop Time 11:26 Total Visit Minutes 26 Physical Therapy Visit Comments Patient Comments Pt agreeable to walk around Therapy Pain Assessment Pain When Pain Assessed During Mobility Pain Present Pain Present Pain Reported Location Left Leg Intensity 6 Pain Management Techniques Re-positioning M4 PT-IP Mobility and Gait Start: 06/22/19 12:27 Freq: NEEDED Status: Active Protocol: Document 06/22/19 13:01 [facility] (Rec: 06/22/19 13:09 [facility] [id number]) PT-Bed Mobility Assessment Supine to Sit Supine to Sit Independent Scooting Scooting to Edge of Bed Independent Scooting Up and Down in Bed Independent PT-Transfer Assessment Sit to and From Stand Sit to and from Stand Standby Assistance,Use of Upper Extremities Equipment Transfer Assistive Device Gait Belt,Front Wheeled Walker Comments Mobility Comments Pt stood to amb into bathroom without AD then amb to sink to wash up without FWW then amb in room with FWW. He had smaller steps and felt more unsteady withotu FWW so used FWW for longer walk in room which improved his gait pattern and feeling of steadiness. O2 saturation after activity was 97% on 3L. Gait Assessment Gait Gait Assistance Required: Standby Assistance,Contact Guard Assist Distance (Feet) 50 Assistive Devices Assistive Device None,Gait Belt,Front Wheeled Walker Orthotic/Prosthetic Devices or Brace: No Gait Deviations General Gait Pattern Decreased Stride Length Factors Limiting Gait Function Factors Limiting Gait Function Decreased Strength,Pain,Poor Balance Comments Gait Comments see above M5 PT-IP Objective Assessments Start: 06/22/19 12:27 Freq: NEEDED Status: Active Protocol: Document 06/22/19 13:01 [facility] (Rec: 06/22/19 13:09 [facility] [id number]) Orientation Orientation/Cognition Level of Alertness Alert Language Function Ability No Deficits Noted Safety Awareness Understands Safety Issues Memory Description No Deficits Noted Strength Lower Extremity Strength Assessment Bilaterally Impaired M6 PT-IP Treatment Start: 06/22/19 12:27 Freq: NEEDED Status: Active Protocol: Document 06/22/19 13:01 [facility] (Rec: 06/22/19 13:09 [facility] [id number]) Physical Therapy Treatment Education Education Provided Safety Other Treatments Other Treatment Performed edu on use of his walker at home when he first returns home and using shower chair in shower M7 PT-IP Assessment and Plan Start: 06/22/19 12:27 Freq: NEEDED Status: Active Protocol: Document 06/22/19 13:01 [facility] (Rec: 06/22/19 13:09 [facility] [id number]) PT Summary Assessment and Plan Potential Rehabilitation Potential Excellent Status of Condition at Evaluation Stable Summary Impairments Strength,Balance,Transfers, Gait,Activity Tolerance Assessment Summary Pt did very well with mboility and is safe ambulating with walker. He was educated on using this at home when he does return home in order to improve his stability. He was agreeable and hopeful to get off O2 soon. He was able to stand and urinate at toilet SBA without any assistance. CGA only required when pt not using FWW but otherwise SBA for amb with FWW. Goals Transfer Goal Independent Gait Goal Standby Assistance Gait Distance 100ft Other Goals up/down 1 step SBA Days to Meet Goals 5 Frequency of Treatment Frequency Of Treatment Once a Day Treatment Plan Physical Therapy Treatment Plan Transfer Training,Gait Training,Therapeutic Exercise, Balance Retraining,Discharge Planning,Neuromuscular Re-ed Recommendations To Nursing Amount of Assist Needed 1 Person Assist Discharge Recommendations PT Discharge Recommendations Home with Assistance
--- NOTE | 2019-06-22 12:20 | CM.DPC ---
Addendum entered by Mary Lou Carlson R.N. 06/22/19 14:33: Called [facility], as they are on this week's calendar for contact. Spoke to Caterina, and stated that they should be able to accomidate on a timely basis. Let her know that nursing, P.T, O.T, and ACCOUNTANT BUDGET may be needed for patient. Went ahead and sent her over face sheet, H&P, and P.T. notes. Let [facility] know that discharge summary, face to face, and orders would be faxed upon discharge. They will review. Addendum entered by Mary Lou Carlson R.N. 06/22/19 14:16: Spoke to Dr. Vizcarra, stated that she had already contacted patient's , and plan will be for discharge tomorrow. Called , Jenifer, to check in. She mentioned that she does have health issues, she had cardiac event last August, and has been going to [facility], but not currently, since they are closed. Mentioned, if my falls, I can't pick him up. Let her know that if this occurs, she would call 911. Let her know that P.t. stated that patient has been ambulating with his walker. Asked her about support, and indicated that patient's sister can also help out. Discussed private caregivers briefly. Asked her about home health. stated, she thought it would be a good idea. Patient mainly goes out for medical appointments, so would be considered home bound. Plan is for discharge tomorrow. Called LEONEL Whitney, as oncology, regarding plan. Originally called her to ask if oncologist can follow for home health, since no primary care provider is listed. Corry stated that Argentina Philippe at [facility] is primary. Updated her that home health could be ordered at discharge. has no preferences on agencies. Addendum entered by Mary Lou Carlson R.N. 06/22/19 13:08: Called LEONEL Wheatley at oncology to inquire about patient and his history. Stated that patient has chosen active treatment, but does continue to smoke. Asked her about situation with patient's , and if she was aware of any issues regarding her health as well. Stated she was not, but have been discussing planning for custodial. According to notes, they do have a neighbor that has been supportive. Corry mentioned that patient has declined since treatment, but continues to elect to continue. She stated that if there are any issues, she can also speak to . At this time, awaiting discharge and Dr. Vizcarra's conversation with . Can consider home health if this will be optional. Original Note: DCP Cont: Patient's , Jenifer, had called and left a message. In her message, she stated her concerns about having patient go home this early, and either wanted to talk to head DC digital sales planner, or physician. According to P.T, patient does not need prison, and is ambulating with his walker. Spoke to Dr. Vizcarra about patient's 's concerns, and she stated that she will call and update her. According to recent notes, patient's does have some health issues, but has a neighbor that is supportive. Patient's COVID test is negative. P: DCP to continue to follow closely. Plan is for patient to return home when medically stable. Mary Lou Carlson RN/Terrazzo Mechanic
--- NOTE | 2019-06-22 12:47 | PC.NURSE ---
Patient alert, oriented LS diminished bilat lower bases but clear. O2 removed, sats at rest 93-95%. PAtient up to the chair with physical therapy.
--- NOTE | 2019-06-22 15:19 | P.PN_ITS ---
Subjective Subjective Date Patient Seen: 06/22/19 Interval history: Patient is a 74-year-old male with a history of diarrhea, metastatic prostate cancer, who was admitted to the hospital with acute respiratory failure, acute renal failure, and rule out COVID-19. Patient states that his diarrhea nausea has improved. His shortness of breath has improved. Overall he feels much better. He is concerned about going home. He states that his is unable to care for himself. Patient is adamant that he does not want to go to a senior living facility. I spoke to the patient's Hurt regarding his discharge plan she states that he is ?a heavy smoker. He has is in his chair smoking all day. In addition she states he does not eat well. She herself has had recent surgery and is concerned about her ability to care for him. Patient has been seen by PT and OT and is making significant improvement. He was previously on 2 L of oxygen. On room air his saturation is 90-93%. Exam Vital Signs (past 8 hours): - 06/22/19 07:31 06/22/19 08:00 06/22/19 12:00 Temperature 97.8 F 97.9 F Pulse Rate 62 80 Respiratory Rate 18 17 Blood Pressure 142/85 H 157/76 H Pulse Oximetry 97 94 90 L 06/22/19 12:46 Temperature Pulse Rate Respiratory Rate Blood Pressure Pulse Oximetry 95 Oxygen Delivery Method Nasal Cannula Oxygen Flow Rate 0 Narrative Exam Narrative: Pleasant elderly gentleman lying in bed in no obvious distress Lungs: Decreased breath sounds bilaterally, no rhonchi crackles or wheezes Cardiac exam: Regular rate rhythm, normal S1-S2, 2/6 systolic ejection murmur Abdomen: Soft nontender nondistended Extremities: No edema Skin exam no lesion Objective Labs Result Diagrams: 06/21/19 05:44 06/22/19 05:18 Labs: Laboratory Results - last 24 hr 06/20/19 06/22/19 06/22/19 15:44 05:18 05:18 Sodium 134 L Potassium 3.5 Chloride 97 L Carbon Dioxide 31 BUN 20 Creatinine 1.77 H Estimated GFR 37.7 L BUN/Creatinine Ratio 11.3 Glucose 101 Calcium 9.9 Procalcitonin 2.03 H COVID-19 PCR Not detected Assessment & Plan Assessment & Plan narrative: 74-year-old male with history of metastatic prostate cancer, admitted to the hospital for acute respiratory failure and pneumonia. Patient initially had diarrhea which is now resolved. 1. Acute hypoxic respiratory failure, present on admission, active -as noted O2 sat in the 70s on room air, ABG pH 7.369, pCO2 55, PO2 53; PaO2/FIO2 of 147 -initial noncontrast CT without evidence of lung infiltrate, -repeat noncontrast CT 06/20 indicates developing mild posterior costophrenic an gle consolidation most likely atelectasis, emphysema noted -patient has been afebrile without overt respiratory symptoms of cough or dyspnea -initial mildly elevated WBC possibly stress reaction, now normal -elevated procalcitonin of 4.50, repeat procalcitonin 2.57 on 06/20, rule out bacterial infection -blood cultures negative to date, urine ordered but not sent -COVID-19 test results are negative -Rocephin 1 g IV q.day and Zithromax 500 mg IV q.day to treat for possible developing bacterial pneumonia -given patient's significant history of smoking suspect hypoxia related to probable underlying COPD -patient currently off oxygen, will start him on 5 day steroid bursts, will continue antibiotics as above 2. Acute kidney injury, present on admission, active -CKD stage 3 with creatinine in 1.5-1.9 range -admit BUN 28, creatinine 2.78, EGFR 22.4 likely explained by patient's lack of p.o. intake in the past several days -last BUN 23, creatinine 2.3 to, EGFR 27.6 -received 2 L NS then IV saline lock -creatinine 1.77, improving towards baseline 3. Acute hypercalcemia, present on admission, active -ue to volume depletion and may be also partly from bone metastases secondary to his prostate CA -improved with IV hydration, initial calcium 12.6, repeat calcium 10.8 4. Paroxysmal AFib with controlled rate, present on admission, active -in ED on tele noted to be intermittently in AFib without change in BP or O2 sat, likely precipitated by hypoxia -monitor on telemetry 5. Metastatic prostate cancer -patient establish with local oncology -continue Xtandi patient's own if available -continue patient's morphine MS Contin 30 mg b.i.d. for bone pain due to metastases 6. Cigarette nicotine dependency -nicotine patch 21 mg q.d. Quality VTE Deep Vein Thrombosis/Pulmonary Embolism Present on Admission: No
--- NOTE | 2019-06-22 17:32 | PM.EVENT ---
Event Note Event Note: The patient was evaluated during the global COVID-19 pending ildefonso, and the diagnosis was suspected/considered upon their initial presentation. There evaluation treatment and testing was consistent with current guidelines for patients who present with complaints or symptoms at may be related to COVID-19
[2019-06-22] MEDS: SODIUM CHLORIDE 0.9% 250 ML 21 ML IV (17:53)
[2019-06-22] MEDS: CEFTRIAXONE 1 GM/50 ML FROZ.PIGGY IV (17:53)
[2019-06-22] MEDS: AZITHROMYCIN 500 MG in DEXTROSE 5% IN WATER 250 ML IV (18:46)
--- NOTE | 2019-06-23 00:05 | PC.NURSE ---
Addendum entered by Lisa Vargas R.N. 06/23/19 05:56: Awake now and not planning to go back to sleep so oxygen removed and will monitor for any desats while on RA. Addendum entered by Lisa Vargas R.N. 06/23/19 02:16: Oximeter alarming and found O2 sat down to 77% with patient asleep so placed on oxygen at 1L and now sat is 94%. Original Note: Patient is alert and oriented; slightly [place]. Breath sounds CTA but diminished at bases. RA sat 93-95% although intermittently desats into 80's but rebounds quickly to > 90%; on continuous oximetry. HR irregular with rate of 54 bpm with automatic cuff and 62 bpm apical. Denies nausea but is complaining of heartburn so ANSELMO Corrigan, informed and order entered for Protonix. BT present and abdomen is soft. Voiding per urinal; denies dysuria, frequency or urgency. Able to turn self in bed. When out of bed is assisted by staff and uses walker. No new skin issues. Wearing bilateral calf SCD's. Endorses aching in bilateral LE as well as bilateral UE and rates severity as 5/10 but states is tolerable. Fall risk score is high and bed alarm is activated.
[2019-06-23] MEDS: PANTOPRAZOLE 20 MG TABLET PO (00:11)
[2019-06-23 02:15] VITALS: O2SAT 77
[2019-06-23 02:17] VITALS: O2SAT 94
[2019-06-23 04:00] VITALS: BP 170/72; PULSE 58; RESP 18; TEMP 36.6; O2SAT 94
[2019-06-23] MEDS: MORPHINE ER 30 MG TABLET PO (06:31)
[2019-06-23 06:33] LABS: Add Manual Diff / Slide Review NO; Basophils Absolute Auto 0 /uL (0-100); Basophils Percent Auto 0.5 % (0-2); Eosinophils Absolute Auto 400 /uL (0-450); Eosinophils Percent Auto 5.3 % (2-4); Hematocrit 35.8 % (41-53); Hemoglobin 12.1 g/dL (13.5-17.5); Lymphocytes Absolute Auto 1500 /uL (1100-4500); Lymphocytes Percent Auto 19.9 % (25-40); Mean Corpuscular HGB Conc 33.9 % (30-36); Mean Corpuscular Hemoglobin 33.7 PG (26-34); Mean Corpuscular Volume 99.3 fL (80-100); Monocytes Absolute Auto 700 /uL (0-900); Monocytes Percent Auto 8.7 % (3-14); Neutrophils Absolute Auto 4900 /uL (1500-7000); Neutrophils Percent Auto 65.6 % (50-75); Platelet Count 200 X10^3/uL (150-400); Red Blood Cell Count 3.61 X10^6/uL (4.5-5.9); Red Cell Distribution Width 12.1 % (11.6-14.8); White Blood Cell Count 7.5 X10^3/uL (4.5-11.0)
[2019-06-23 06:40] LABS: BUN Creatinine Ratio 9.8 (6-22); Blood Urea Nitrogen 16 mg/dL (9-20); Calcium 9.4 mg/dL (8.4-10.2); Carbon Dioxide 29 mmol/L (22-32); Chloride 98 mmol/L (98-107); Estimated Glomerular Filt Rate 41.2 mL/min (>60); Glucose 101 mg/dL (80-110); HEMOLYSIS < 15 (0-50); Potassium 3.6 mmol/L (3.4-5.1); Sodium 135 mmol/L (137-145)
[2019-06-23 06:59] LABS: Procalcitonin 2.17 ng/mL (<0.5)
[2019-06-23 08:00] VITALS: BP 135/70; PULSE 61; RESP 16; TEMP 36.7; O2SAT 94
[2019-06-23] MEDS: SODIUM CHLORIDE 0.9% FLUSH 10 ML IV (09:14)
[2019-06-23] MEDS: NICOTINE 21 MG PATCH TOP (09:21)
[2019-06-23] MEDS: ENOXAPARIN 30 MG/0.3 ML SYRINGE SUBCUT (09:22)
--- NOTE | 2019-06-23 10:30 | PM.DS.1 ---
History of Present Illness History of Present Illness Date Patient Seen: 06/23/19 Chief complaint: Weak Narrative: Patient is a 74-year-old male with history of metastatic prostate cancer, under care of local Oncology, presented to emergency department with complaints of ?diarrhea ?and vomiting episode and weakness. Patient states he has had poor appetite and not taking much by mouth over the past 4 days. He takes Zofran regularly for nausea. He has also been constipated and taking MiraLax daily. This morning he had a bout of large watery bowel movement. He was feeling tired and went to bed. He woke up this afternoon with stool incontinence while still in bed and apparently barely made it to the bathroom. It sounds like he had a controlled fall in the bathroom and did not hit his head. He was very weak and could not stand up. When EMS arrived he was covered in feces. In the ER, patient started to have acute desaturations in his pulse ox with O2 sat in the 70s. He was put on 4 L O2 and C with improvement in sats to the mid 90s but on 2 L his sats have been in the low 80s. His ABG on 4 L (36%) NC showed pH 7.37, pCO2 55, PO2 53, sat 85%. However, patient denies cough, shortness of breath or fever. He lives with his who has not been sick. He had chest x-ray which showed patchy areas of increased density which likely represents sclerotic rib lesions from his metastatic cancer. His chest CT did not show any infiltrates. He has been intermittently in AFib on telemetry in the ED. His WBC is 12.3 with normal neutrophil and lymphocyte percentage, slightly elevated eosinophils, hemoglobin 12.7, sodium 133, potassium 3.6, BUN 28, creatinine 2.78. His recent baseline creatinine is 1.5-1.9 range. His serum calcium is quite elevated at 12.6. Procalcitonin is elevated at 4.50. Discharge Providers Provider Date of admission: 06/20/19 17:12 Discharge Date: 06/23/19 Consults: 06/20/19 23:29 Consult to Respiratory Therapy Evaluate & Treat Comment: Physician Instructions: Evaluate and treat 06/22/19 10:33 Consult to Physical Therapy Evaluate & Treat Comment: Physician Instructions: Evaluate and Treat Discharge provider: France Vizcarra MD Summary Hospital Course Discharge Diagnosis: 1. Acute hypoxic respiratory failure 2. Probable COPD exacerbation 3. Probable bacterial pneumonia 4. Metastatic prostate cancer 5. Diarrhea now resolved 6. Nicotine dependence 7. Decreased appetite, failure to thrive 8. Paroxysmal atrial fibrillation 9. Acute on chronic renal failure, stage III 10. Hypercalcemia now resolved 11. Probable obstructive sleep apnea Hospital Course: Patient was admitted to the hospital for diarrhea, during his hospital stay he developed significant hypoxia. Patient required high-flow oxygen and ultimately was able to be tapered down to 6 L and then off. He had as CT of the chest that showed a posterior probable infiltrate. Patient was placed on IV antibiotics for probable bacterial pneumonia. He was ruled out for COVID-19. Patient was able to be tapered off oxygen. Given his CT findings of emphysema and known smoking history of a pack per day he was placed on a short course of steroids for probable COPD. In addition the patient was found to have hypercalcemia which improved with IV hydration. He had acute kidney injury which also improved with hydration. He was somewhat weak initially but with physical therapy was able to ambulate as previously. The patient made slow but steady progress. He was deemed appropriate for discharge. Arrangements were made for him to be discharged home. The patient had a pelvic x-ray which showed bony Mets to the pelvis, duplex ultrasound which showed no evidence of DVT. Chest CT could not be obtained with contrast to rule out PE. However there was a posterior infiltrate that suggested either atelectasis versus pneumonia. Given his elevated CRP and abrupt onset hypoxia he was treated for pneumonia. Patient is deemed appropriate for discharge and arrangements were made for him to be discharged home. The patient was noted to desaturate at night with sleeping. But when awake and alert his oxygen saturation was 96% on room air. Exam Vital Signs (past 8 hours): - 06/23/19 04:00 06/23/19 08:00 Temperature 97.8 F 98.0 F Pulse Rate 58 L 61 Respiratory Rate 18 16 Blood Pressure 170/72 H 135/70 Pulse Oximetry 94 94 Oxygen Delivery Method Room Air Oxygen Flow Rate 0 Narrative Exam Narrative: Pleasant gentleman resting comfortably in no obvious distress Lungs: Decreased breath sounds with occasional scattered rhonchi Cardiac exam: Irregularly irregular normal S1-S2 with a 2/6 systolic ejection murmur Abdomen: Soft nontender nondistended Extremities: No edema Objective Labs Result Diagrams: 06/23/19 05:48 06/23/19 05:48 Labs: Laboratory Results - last 24 hr 06/23/19 06/23/19 06/23/19 05:48 05:48 05:48 WBC 7.5 RBC 3.61 L Hgb 12.1 L Hct 35.8 L MCV 99.3 MCH 33.7 MCHC 33.9 RDW 12.1 Plt Count 200 Neut % (Auto) 65.6 Lymph % (Auto) 19.9 L [place] % (Auto) 8.7 Eos % (Auto) 5.3 H Baso % (Auto) 0.5 Neut # (Auto) 4900 Lymph # (Auto) 1500 [place] # (Auto) 700 Eos # (Auto) 400 Baso # (Auto) 0 Sodium 135 L Potassium 3.6 Chloride 98 Carbon Dioxide 29 BUN 16 Creatinine 1.64 H Estimated GFR 41.2 L BUN/Creatinine Ratio 9.8 Glucose 101 Calcium 9.4 Procalcitonin 2.17 H Discharge Plan Discharge Plan Patient Disposition: Home Health Service Transfer to: [facility] Discharge comment: F/U with PCP. May need outpatient sleep study given nocturnal hypoxia Discharge orders & Medications Prescriptions: New nicotine 21 mg/24 hr Patch 24 Hour 21 mg topical DAILY 7 Days RF: 0 azithromycin 250 mg tablet 250 mg PO DAILY 2 Days RF: 0 prednisone 20 mg Tablet 40 mg PO DAILY 4 Days RF: 0 Continued aspirin 325 MG tablet,delayed release (DR/EC) 325 mg PO PRN PRN (Reason: Pain, Moderate) Qty: 0 RF: 0 morphine 30 mg tablet extended release 30 mg PO PRN PRN (Reason: Pain (Scale Score 1-3)) RF: 0 Xtandi 40 mg Capsule 160 mg PO DAILY Qty: 120 RF: 11 hydrocodone-acetaminophen 5-325 mg Tablet 1 tab PO DAILY Qty: 30 RF: 0 ondansetron HCl [Zofran] 8 mg Tablet 8 mg PO Q6HR PRN (Reason: Nausea) Qty: 60 RF: 0 Diet/Activity/Treatments Diet: Diet as Tolerated Activity: as tolerated Oxygen: not indicated Quality VTE Deep Vein Thrombosis/Pulmonary Embolism Present on Admission: No
--- NOTE | 2019-06-23 11:49 | CM.DPC ---
DCP Cont: Patient is to be discharged home today. Dr. Vizcarra signed face to face for home health. Confirmed that patient will be getting nursing, P.T, O.T, MULTIFOCAL BUTTON INSPECTOR. Called [facility] and spoke to Lindsey, and let her know that patient is discharging today. Faxed over discharge summary, orders, and face to face. H&P and face sheet were already faxed yesterday. Called and updated patient's , Jenifer. She will be here at approximately 1:00pm. Updated patient as well, that she will pick him up as indicated above. Patient is eager to go home. P: Patient is to discharge home today and will be getting [facility]. is aware that [facility] is being set up. Mary Lou Carlson RN/Box Coverer Hand
--- NOTE | 2019-06-23 12:55 | PT-IP ANOTE ---
Spoke to ESTIVEN Moore. Pt is going home this morning and there is no necessity for PT tx. D/c from therapy.
--- NOTE | 2019-06-23 13:25 | PC.NURSE ---
Day shift: Pt taken to car driven by his spouse by this brief writer in WC. Tolerated well. Pt is moving well and steady on feet. Paperwork signed and all questions answered. Pt has all personal belongings and MD scrips.
== END 2019-06-23 13:26 | disposition home health service (06) | DRG 193 ==
LOC: ED 17:11 → AC 17:12
PROVIDERS: Internal Medicine; Admitting Provider Internal Medicine; Emergency Provider Emergency Medicine; Referring Provider Emergency Medicine; Visit Provider Internal Medicine
DX: J15.9 Unspecified bacterial pneumonia (principal); J96.01 Acute respiratory failure with hypoxia; N17.9 Acute kidney failure, unspecified; C79.51 Secondary malignant neoplasm of bone; J44.1 Chronic obstructive pulmonary disease with (acute) exacerbation; J44.0 Chronic obstructive pulmonary disease with (acute) lower respiratory infection; N18.3 Chronic kidney disease, stage 3 (moderate); R62.7 Adult failure to thrive; C61 Malignant neoplasm of prostate; E83.52 Hypercalcemia; I48.0 Paroxysmal atrial fibrillation; Z03.818 Encounter for observation for suspected exposure to other biological agents ruled out; F17.210 Nicotine dependence, cigarettes, uncomplicated; R19.7 Diarrhea, unspecified; Z68.22 Body mass index [BMI] 22.0-22.9, adult
CPT/HCPCS: 36415; 36600; 71045; 71250; 73502; 80048; 80053; 82728; 82805; 83615; 83690; 84145; 84484; 85025; 85379; 86140; 87040; 87635; 93005; 93970; 94760; 94762; 96361; 96365; 96375; 97116; 97161; 99285; J1650; J2405

== ENCOUNTER → 2019-10-22 10:40 | Outpatient (CLI) | payer MEDICARE, SELFPAY ==
[2019-06-20 19:14] VITALS: BMI 22.9
--- NOTE | 2019-10-22 10:42 | DI.NM.S_ITS ---
PROCEDURE: [place] BONE SCAN WHOLE BODY RADIOPHARMACEUTICAL: 19.4 mCi Tc-99m MDP IV. INDICATIONS: Restaging prostate cancer with rising PSA TECHNIQUE: Delayed whole-body scintigrams were obtained approximately 3-4 hours after intravenous injection of radiotracer. Anterior and posterior views were acquired from vertex to feet. COMPARISON: [facility], CT, CT CHEST ABD PEL WO CON, 03/06/2019, 10:21. [facility], CT, CT CHEST ABD PEL WO CON, 10/22/2019, 10:44. [facility], CR, XR HIP W PEL IF DONE LT 2V, 06/21/2019, 14:21. [place], [place] BONE SCAN WHOLE BODY, 03/06/2019, 12:57. [place] BONE SCAN WHOLE BODY, 06/02/2018, 12:52. FINDINGS: Through the axial and appendicular skeleton no acute disease is found that would suggest presence of new osseous metastatic disease. In fact, the T5 region posterior paramedian focus of relatively prominent isotope deposition has diminished in conspicuity, likely reflecting successful response to therapy. Extensive osteoblastic metastatic disease is present on CT scanning performed same day, without super scan appearance of absence of any isotope deposit within the renal collecting system or bladder. This may indicate chronic sclerotic change rather than acute superimposed active disease in those areas. IMPRESSION: Improvement in a small focus of relatively intense thoracic spine isotope uptake from the comparison bone scan in February of 2019. Reference to the CT scanning also from today documents no definite change in the extensive osteoblastic disease previously present throughout much of the skeletal structures. Therefore, chronic low-grade or inactive disease may explain that CT appearance. Dictated by: Maykel Urias M.D. on 10/22/2019 at 15:32 Approved by: Maykel Urias M.D. on 10/22/2019 at 15:42
--- NOTE | 2019-10-22 10:55 | DI.CT.S_ITS ---
PROCEDURE: CT CHEST ABD PEL WO CON INDICATIONS: Restaging prostate cancer with rising PSA TECHNIQUE: After the administration of oral contrast, 5 mm thick sections acquired from the lung apices to the symphysis pubis. 5 mm thick coronal and sagittal reformats acquired, with additional 7 mm coronal MIP reformats through the lungs. For radiation dose reduction, the following was used: automated exposure control, adjustment of mA and/or kV according to patient size. COMPARISON: [facility], CT, CT CHEST ABD PEL W CON, 06/02/2018, 11:41. [facility], CT, CT CHEST WO CON, 06/21/2019, 9:37. [facility], CT, CT CHEST ABD PEL WO CON, 03/06/2019, 10:21. FINDINGS: Image quality: Excellent. CHEST: Lungs and pleura: No acute pulmonary opacities. No pleural effusions or pneumothorax. Central and peripheral airways are patent are normal in caliber. Mediastinum: Heart size is normal. No pericardial effusion. No mediastinal adenopathy by CT size criteria. Thoracic aorta and central pulmonary arteries are normal in size. Esophagus is normal in caliber. No hiatal hernia. Chest wall: No axillary or supraclavicular adenopathy by size criteria. Thyroid gland is not well seen by this noncontrast technique. Extensive osteoblastic metastatic disease not changed from comparison prior chest CT scanning 06/21/19 and 06/02/18. ABDOMEN: Solid organs: Liver is normal in size. Gallbladder appears normal . Pancreas is normal in contours. Spleen is normal in size. No adrenal nodules. Both kidneys are normal in size, without hydronephrosis or nephrolithiasis. The right kidney is normal in size, the left kidney is relatively small as has been previously the case on prior abdomen/pelvis CT scanning from May of 2018. Peritoneum and bowel: Small and large bowel loops are normal in caliber and wall thickness. No free fluid or air. Nodes and vessels: No retroperitoneal or mesenteric adenopathy by size criteria. Aorta and inferior vena cava are normal in size. Miscellaneous: No ventral hernias. Extensive osseous osteoblastic metastatic disease. PELVIS: Genitourinary: Bladder wall thickness is normal. Miscellaneous: No inguinal hernias or adenopathy. Bones: Generalized osseous metastatic disease appears present as indicated by prominent osteoblastic change involving the skeletal structures, also previously seen on prior CT scanning from May of 2018. A definite interval worsening has not developed.. No vertebral body compression fractures. 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 No adenopathy has developed, no visceral metastatic disease is seen. Dictated by: Maykel Urias M.D. on 10/22/2019 at 14:52 Approved by: Maykel Urias M.D. on 10/22/2019 at 14:59
== END ==
PROVIDERS: PCP Physician Assistant; Referring Provider Physician Assistant; Visit Provider Internal Medicine
DX: C61 Malignant neoplasm of prostate (principal); C79.51 Secondary malignant neoplasm of bone; R97.21 Rising PSA following treatment for malignant neoplasm of prostate
CPT/HCPCS: 71250; 74176; 78306; A9503

== ENCOUNTER → 2019-11-02 10:02 | Outpatient (CLI) | payer MEDICARE, SELFPAY ==
[2019-06-20 19:14] VITALS: BMI 22.9
[2019-11-03 03:51] LABS: COVID19 Sendout Not Detected (Not Detect)
== END ==
PROVIDERS: PCP Physician Assistant; Visit Provider Physician Assistant
DX: Z11.59 Encounter for screening for other viral diseases (principal)
CPT/HCPCS: 87635

== ENCOUNTER → 2020-02-15 12:57 | Outpatient (CLI) | payer MEDICARE, SELFPAY ==
[2019-06-20 19:14] VITALS: BMI 22.9
[2020-02-15 13:29] LABS: Alanine Aminotransferase 12 IU/L (<50); Albumin 4.3 g/dL (3.5-5.0); Albumin Globulin Ratio 1.5 (1.0-2.8); Alkaline Phosphatase 104 U/L (38-126); Aspartate Aminotransferase 22 IU/L (17-59); BUN Creatinine Ratio 16.3 (6-22); Bilirubin Total 0.6 mg/dL (0.2-1.3); Blood Urea Nitrogen 23 mg/dL (9-20); Calcium 9.1 mg/dL (8.4-10.2); Carbon Dioxide 25 mmol/L (22-32); Chloride 104 mmol/L (98-107); Globulin 2.9 g/dL (1.7-4.1); Glucose 112 mg/dL (80-110); HEMOLYSIS < 15 (0-50); Potassium 4.2 mmol/L (3.4-5.1); Sodium 134 mmol/L (137-145); Total Protein 7.2 g/dL (6.3-8.2)
[2020-02-16 16:33] LABS: Prostate Specific Antigen 87.5 ng/mL (0.10-4.00)
== END ==
PROVIDERS: PCP Physician Assistant; Referring Provider Internal Medicine; Visit Provider Internal Medicine
DX: C61 Malignant neoplasm of prostate (principal); C79.51 Secondary malignant neoplasm of bone
CPT/HCPCS: 36415; 80053; 84153

== ENCOUNTER → 2020-03-22 12:32 | Outpatient (CLI) | payer MEDICARE, SELFPAY ==
[2019-06-20 19:14] VITALS: BMI 22.9
[2020-03-22 13:23] LABS: Add Manual Diff / Slide Review NO; Basophils Absolute Auto 0 /uL (0-100); Basophils Percent Auto 0.5 % (0-2); Eosinophils Absolute Auto 200 /uL (0-450); Eosinophils Percent Auto 2.6 % (2-4); Hematocrit 36.5 % (41-53); Hemoglobin 12.5 g/dL (13.5-17.5); Lymphocytes Absolute Auto 2300 /uL (1100-4500); Lymphocytes Percent Auto 27.1 % (25-40); Mean Corpuscular HGB Conc 34.3 % (30-36); Mean Corpuscular Hemoglobin 33.4 PG (26-34); Mean Corpuscular Volume 97.5 fL (80-100); Monocytes Absolute Auto 800 /uL (0-900); Monocytes Percent Auto 9.6 % (3-14); Neutrophils Absolute Auto 5100 /uL (1500-7000); Neutrophils Percent Auto 60.2 % (50-75); Platelet Count 258 X10^3/uL (150-400); Red Blood Cell Count 3.75 X10^6/uL (4.5-5.9); Red Cell Distribution Width 13.6 % (11.6-14.8); White Blood Cell Count 8.5 X10^3/uL (4.5-11.0)
[2020-03-22 13:36] LABS: Alanine Aminotransferase 10 IU/L (<50); Albumin 4.2 g/dL (3.5-5.0); Albumin Globulin Ratio 1.4 (1.0-2.8); Alkaline Phosphatase 97 U/L (38-126); Aspartate Aminotransferase 25 IU/L (17-59); BUN Creatinine Ratio 16.8 (6-22); Bilirubin Total 0.2 mg/dL (0.2-1.3); Blood Urea Nitrogen 23 mg/dL (9-20); Calcium 9.4 mg/dL (8.4-10.2); Carbon Dioxide 31 mmol/L (22-32); Chloride 99 mmol/L (98-107); Estimated Glomerular Filt Rate 50.7 mL/min (>60); Globulin 2.9 g/dL (1.7-4.1); Glucose 87 mg/dL (80-110); HEMOLYSIS < 15 (0-50); Potassium 3.8 mmol/L (3.4-5.1); Sodium 134 mmol/L (137-145); Total Protein 7.1 g/dL (6.3-8.2)
[2020-03-22 14:48] LABS: Prostate Specific Antigen 104 ng/mL (0.10-4.00)
== END ==
PROVIDERS: PCP Physician Assistant; Referring Provider Internal Medicine; Visit Provider Internal Medicine
DX: C61 Malignant neoplasm of prostate (principal); C79.51 Secondary malignant neoplasm of bone
CPT/HCPCS: 36415; 80053; 84153; 85025

== ENCOUNTER → 2020-03-30 12:34 | Outpatient (CLI) | payer MEDICARE, SELFPAY ==
[2019-06-20 19:14] VITALS: BMI 22.9
[2020-03-30 13:10] LABS: Add Manual Diff / Slide Review NO; Basophils Absolute Auto 100 /uL (0-100); Basophils Percent Auto 1.1 % (0-2); Eosinophils Absolute Auto 100 /uL (0-450); Eosinophils Percent Auto 1.9 % (2-4); Hematocrit 39.6 % (41-53); Hemoglobin 13.5 g/dL (13.5-17.5); Lymphocytes Absolute Auto 3000 /uL (1100-4500); Lymphocytes Percent Auto 42.8 % (25-40); Mean Corpuscular HGB Conc 34.1 % (30-36); Mean Corpuscular Hemoglobin 33.4 PG (26-34); Mean Corpuscular Volume 97.9 fL (80-100); Monocytes Absolute Auto 200 /uL (0-900); Neutrophils Absolute Auto 3600 /uL (1500-7000); Neutrophils Percent Auto 51.2 % (50-75); Platelet Count 243 X10^3/uL (150-400); Red Blood Cell Count 4.05 X10^6/uL (4.5-5.9); Red Cell Distribution Width 13.6 % (11.6-14.8); White Blood Cell Count 7.1 X10^3/uL (4.5-11.0)
[2020-03-30 13:26] LABS: Alanine Aminotransferase 12 IU/L (<50); Albumin 4.3 g/dL (3.5-5.0); Albumin Globulin Ratio 1.6 (1.0-2.8); Alkaline Phosphatase 86 U/L (38-126); Aspartate Aminotransferase 22 IU/L (17-59); BUN Creatinine Ratio 13.6 (6-22); Bilirubin Total 0.4 mg/dL (0.2-1.3); Blood Urea Nitrogen 16 mg/dL (9-20); Calcium 8.4 mg/dL (8.4-10.2); Carbon Dioxide 25 mmol/L (22-32); Chloride 106 mmol/L (98-107); Estimated Glomerular Filt Rate > 60.0 mL/min (>60); Globulin 2.7 g/dL (1.7-4.1); Glucose 96 mg/dL (80-110); HEMOLYSIS < 15 (0-50); Potassium 3.8 mmol/L (3.4-5.1); Sodium 137 mmol/L (137-145)
[2020-03-30 14:38] LABS: Prostate Specific Antigen 102 ng/mL (0.10-4.00)
== END ==
PROVIDERS: PCP Physician Assistant; Referring Provider Internal Medicine; Visit Provider Internal Medicine
DX: C61 Malignant neoplasm of prostate (principal); C79.51 Secondary malignant neoplasm of bone
CPT/HCPCS: 36415; 80053; 84153; 85025

== ENCOUNTER → 2020-10-07 09:52 | Outpatient (CLI) | payer MEDICARE, SELFPAY ==
[2019-06-20 19:14] VITALS: BMI 22.9
--- NOTE | 2020-10-07 09:55 | DI.NM.S_ITS ---
PROCEDURE: [place] BONE SCAN WHOLE BODY RADIOPHARMACEUTICAL: 19.7 mCi Tc-99m MDP IV. INDICATIONS: restaging for prostate cancer TECHNIQUE: Delayed whole-body scintigrams were obtained approximately 3-4 hours after intravenous injection of radiotracer. Anterior and posterior views were acquired from vertex to feet. Additional left and right oblique views of the chest and pelvis were obtained. COMPARISON: [facility], CT, CT CHEST ABD PEL WO CON, 10/22/2019, 10:44. [facility], [place], [place] BONE SCAN WHOLE BODY, 10/22/2019, 14:22. FINDINGS: There is diffuse increased radiotracer uptake within the cervical, thoracic, and lumbar spine, as well as the bilateral sacral ala, pelvis, and proximal bilateral femoral, left greater than right, as before. There is a new focus of increased radiotracer uptake within the posterior aspect of the mid thoracic spine on the left. Additionally, there is a focus of increased radiotracer uptake within the right lateral ribs, roughly at the 6th rib laterally, new since the prior examination. IMPRESSION: 1. Severe bony metastatic disease, as before. 2. New foci of presumed metastatic disease within the thoracic spine and right ribs. Dictated by: Allison Monreal M.D. on 10/07/2020 at 13:52 Approved by: Allison Monreal M.D. on 10/07/2020 at 13:54
--- NOTE | 2020-10-07 11:00 | DI.CT.S_ITS ---
PROCEDURE: CT CHEST ABD PEL W CON INDICATIONS: restage prostate cancer TECHNIQUE: After the administration of oral and intravenous contrast, axial sections acquired from the supraclavicular neck to the pubic symphysis. Coronal and sagittal reformats were performed. For radiation dose reduction, the following was used: automated exposure control, adjustment of mA and/or kV according to patient size. COMPARISON: [facility], CT, CT CHEST WO CON, 06/21/2019, 9:37. [facility], CT, CT CHEST WO CON, 06/20/2019, 16:01. [facility], CT, CT CHEST ABD PEL WO CON, 03/06/2019, 10:21. [facility], CT, CT CHEST ABD PEL WO CON, 10/22/2019, 10:44. [place], [place] BONE SCAN WHOLE BODY, 10/22/2019, 14:22. [place], [place] BONE SCAN WHOLE BODY, 10/07/2020, 13:01. [facility], CT, CT CHEST ABD PEL W CON, 06/02/2018, 11:41. FINDINGS: Image quality: Excellent. CHEST: Lower Neck: No enlarged lymph nodes. Thyroid: Normal where well seen. Axillae: No enlarged lymph nodes. Chest Wall: Unremarkable. Lungs and Airways: No consolidation or suspicious nodules. Pleura: No pneumothorax or pleural effusions. Heart: Heart size is normal. No pericardial effusion. Thoracic Vessels: The aorta and pulmonary arteries demonstrate normal size. Mediastinum and [place]: No enlarged lymph nodes. Esophagus: No wall thickening. No hiatal hernia. ABDOMEN: Liver: Unremarkable. Gallbladder: Unremarkable. Biliary ducts: Unremarkable. Pancreas: Unremarkable. Spleen: Unremarkable. Adrenal Glands: Unremarkable. Kidneys and Ureters: Normal on the right, chronically diminutive on the left.. Stomach and Bowel: Stomach, small bowel loops, and colon are unremarkable. Peritoneum: No abnormal intraperitoneal fluid. No free air. Ventral Wall: No hernia. Abdominal Nodes: No retroperitoneal or mesenteric adenopathy by size criteria. Vessels: Aorta and inferior vena cava are normal in size. PELVIS: Pelvic Organs: Unremarkable. A mass lesion extending from the prostate into adjacent structures is not found. Bladder: Mild circumferential bladder wall thickening, no suspicion for urothelial mass. Pelvic Nodes: No enlarged lymph nodes. Miscellaneous: No inguinal hernias are seen. Bones: Extensive osteoblastic metastatic disease is again seen through the axial and appendicular skeleton, without definite interval change from the comparison study in October of last year.. IMPRESSION: 1. Extensive osteoblastic metastatic disease stable over time with reference to the most recent comparison staging CT from October last . 2. No evidence of adenopathy or direct extension by neoplasm from the prostate into adjacent structures. Dictated by: Maykel Urias M.D. on 10/07/2020 at 13:54 Approved by: Maykel Urias M.D. on 10/07/2020 at 14:03
== END ==
PROVIDERS: PCP Physician Assistant; Referring Provider Internal Medicine Medical Oncology; Visit Provider Internal Medicine Medical Oncology
DX: C61 Malignant neoplasm of prostate (principal); C79.51 Secondary malignant neoplasm of bone
CPT/HCPCS: 71260; 74177; 78306; A9503; Q9967

== ENCOUNTER → 2022-04-19 09:03 | Outpatient (CLI) | payer MEDICARE, SELFPAY ==
[2019-06-20 19:14] VITALS: BMI 22.9
--- NOTE | 2022-04-19 09:05 | DI.CT.S_ITS ---
PROCEDURE: CT CHEST ABD PEL W CON INDICATIONS: restaging prostate cancer TECHNIQUE: After the administration of oral and intravenous contrast, axial sections acquired from the supraclavicular neck to the pubic symphysis. Coronal and sagittal reformats were performed. For radiation dose reduction, the following was used: automated exposure control, adjustment of mA and/or kV according to patient size. COMPARISON: [facility], CT, CT CHEST ABD PEL W CON, 10/07/2020, 11:01. FINDINGS: Image quality: Good Lungs and pleura: Emphysema. Scattered scarring and atelectasis. No pleural effusions. No new or enlarging nodules. Small nodular scarring in the left upper lobe is stable. Mediastinum, heart, and esophagus: No hiatal hernia. Biatrial enlargement. There are annular and valvular calcifications. Coronary calcifications. No pathologic adenopathy by size criteria. Chest wall and thyroid: Unremarkable Solid organs: Subcentimeter lesions are too small to characterize, stable. Liver perfusion is somewhat heterogeneous. Gallbladder is unremarkable. Similar prominence of the pancreatic duct and biliary tree. Mildly atrophic pancreatic parenchyma, as before. Multiple splenules, stable. Spleen size is nonenlarged. Bilateral adrenal thickening, slightly increased from prior. Left greater right renal atrophy as before there are cysts. Moderate to severe left hydronephrosis, slightly increased from prior. Vessels and lymph nodes: No abdominal aortic aneurysm. Moderate atherosclerotic disease of the aorta and its branches. Evaluation is difficult for lymph nodes due to lack of intra-abdominal fat. Retroperitoneal adenopathy is increased, for example left periaortic soft tissue measures about 1.6 cm on axial image 72. A left external iliac node (axial image 97) measures about 1.1 cm. Other abdominal pelvic pathologic lymph nodes are also present. The main portal vein is patent. Bowel and peritoneum: No bowel obstruction moderate fecal loading. No pathologic ascites. Body wall: Unremarkable. Pelvis: Primary prostate malignancy is not well evaluated on CT. The bladder is underdistended which limits evaluation. Bones: Osteoblastic metastases have increased, now more confluent for example in the femurs this also appears more confluent in the sternum and manubrium. IMPRESSION: Increased mannie disease in the abdomen and pelvis. Increased burden of osseous blastic metastases. Consider bone scan to assess activity. Chronic left hydronephrosis and atrophy of the kidney. Other stable/incidental findings above. Dictated by: Anoop Ocampo M.D. on 04/19/2022 at 10:40 Approved by: Anoop Ocampo M.D. on 04/19/2022 at 10:51
--- NOTE | 2022-04-19 09:05 | DI.NM.S_ITS ---
PROCEDURE: [place] BONE SCAN WHOLE BODY RADIOPHARMACEUTICAL: 21.6 mCi Tc-99m MDP IV. INDICATIONS: restaging prostate cancer TECHNIQUE: Delayed whole-body scintigrams were obtained approximately 3-4 hours after intravenous injection of radiotracer. Anterior and posterior views were acquired from vertex to feet. COMPARISON: [facility], CT, CT CHEST ABD PEL W CON, 04/19/2022, 10:04. [facility], [place], [place] BONE SCAN WHOLE BODY, 10/07/2020, 13:01. FINDINGS: There is an increased, severe degree of metastatic disease within the axial and proximal appendicular skeleton, most severely seen within the calvarium, bilateral humeral heads, ribs, bilateral femoral necks, and sternum. IMPRESSION: Increased, severe degree of bony metastatic disease. Dictated by: Allison Monreal M.D. on 04/19/2022 at 13:29 Transcribed by: CHECO on 04/19/2022 at 13:31 Approved by: Allison Monreal M.D. on 04/19/2022 at 15:01
== END ==
PROVIDERS: PCP Physician Assistant; Referring Provider Internal Medicine Medical Oncology; Visit Provider Internal Medicine Medical Oncology
DX: C61 Malignant neoplasm of prostate (principal); C79.51 Secondary malignant neoplasm of bone; R59.0 Localized enlarged lymph nodes; I70.0 Atherosclerosis of aorta; J43.9 Emphysema, unspecified
CPT/HCPCS: 71260; 74177; 78306; A9503; Q9967